=== PATIENT | female | born 1970 | race Caucasian/White ===

== ENCOUNTER 2016-08-09 08:21 | Emergency (ER) | payer OTHER ==
[2016-08-09 08:44] VITALS: BP 137/71
== END 2016-08-09 10:05 | disposition left against medical advice (07) ==
LOC: UCEAST 08:21
DX: R50.9 Fever, unspecified (principal); R05 Cough; M79.1 Myalgia; Z53.21 Procedure and treatment not carried out due to patient leaving prior to being seen by health care provider

== ENCOUNTER 2016-12-22 20:43 | Emergency (ER) | payer SELFPAY ==
[2016-12-22 21:09] VITALS: BP 149/79
--- NOTE | 2016-12-22 21:22 | UC ---
Ihsan Ortega Thomas, scribed for Arlene Pandey MD on 12/22/16 at 2105 . Upper Extremity HPI - HPI Summary HPI Summary: The patient is an 46 y/o F presenting to [facility] [place] c/o R arm pain that began 12 days ago. The pt notes a hard spot to the R forearm that has a throbbing quality. The pain radiates into her shoulder (with a shooting quality), although her shoulder pain only occurs with movement of elbow. The pt was helping a pastient use the toilet when she injured herself in an unclear manner. Shortly after the injury, she reports minor discomfort, for which she iced her arm. Her pain has worsened over the last 12 days, prompting a visit to [facility] [place]. She reports a previous neck injury, for which she takes muscle relaxers, Tylenol, and codeine. She also has recently taken ibuprofen to control her pain as well. She works at the [employer]. She sometimes lifts in her job. The pt is R-handed. She has had previous injuries to her R shoulder. The patient says the pain is throbbing and rates the pain 8/10. She additionally c/o distal swelling on her distal hand and hand numbness. PMHx: neck injury, shoulder injury. PSHx: 4 R shoulder surgeries ([id number]). SHx: no tobacco, no alcohol, no illicit drugs. FHx: none of shoulder problems. Her PCP is Dr. Preciado. Patients medications are reviewed this visit. - History of Current Complaint Chief Complaint: UCUpperExtremity Stated Complaint: ARM INJURY Time Seen by Provider: 12/22/16 20:52 Hx Obtained From: Patient Hx Last Menstrual Period: 12/06/16 Onset/Duration: Lasting Days - 12 days ago, Still Present Pain Intensity: 8 Pain Scale Used: 0-10 Numeric Character: Throbbing Aggravating Factor(s): Movement Alleviating Factor(s): Ice, OTC Meds - tylenol, ibuprofen Associated Signs And Symptoms: Positive: Swelling, Numbness/Tingling Related History: Dominant Hand Right - Allergies/Home Medications Allergies/Adverse Reactions: Allergies Allergy/AdvReac Type Severity Reaction Status Date / Time Propoxyphene Allergy Intermediate Itching Verified 08/09/16 08:44 [From Darvocet-N] Cyclobenzaprine Allergy Mild TIRED, Verified 08/09/16 08:44 [From Flexeril] NAUSEA, "OUT OF IT" Hydrocodone [From Vicodin] Allergy Mild Itching Verified 08/09/16 08:44 Pseudoephedrine Allergy Mild "WHACKS ME Verified 08/09/16 08:44 [From Sudafed] OUT" PMH/Surg Hx/FS Hx/Imm Hx Previously Healthy: No Other Neurological History: Injuries to R shoulder and neck Other History Of: Negative For: Anticoagulant Therapy - Surgical History Surgical History: Yes Surgery Procedure, Year, and Place: RIGHT THUMB, 4 RT SHOULDER SURGERIES 1997- 2000 - Family History Known Family History: Positive: None - Social History Alcohol Use: None Substance Use Type: None Smoking Status (MU): Never Smoked Tobacco - Immunization History Most Recent Influenza Vaccination: 2014 Review of Systems Constitutional: Negative Skin: Negative Eyes: Negative ENT: Negative Respiratory: Negative Cardiovascular: Negative Gastrointestinal: Negative Genitourinary: Negative Motor: Negative Neurovascular: Negative Musculoskeletal: Edema - POS: swelling to distal hand, Other: - POS: R arm pain Neurological: Numbness - hand Psychological: Negative All Other Systems Reviewed And Are Negative: Yes Physical Exam Triage Information Reviewed: Yes Appearance: Well-Appearing, No Pain Distress Vital Signs: Initial Vital Signs Temp 97.8 F 12/22/16 20:56 Pulse 73 12/22/16 20:56 Resp 17 12/22/16 20:56 BP 149/79 12/22/16 20:56 Pulse Ox 96 12/22/16 20:56 Vital Signs Reviewed: Yes Eye Exam: Normal ENT Exam: Normal Neck exam: Normal Neck: Positive: 1 Respiratory Exam: Normal Respiratory: Positive: Chest non-tender, Lungs clear Cardiovascular Exam: Normal Cardiovascular: Positive: RRR, No Murmur, Other: - 2+ radial, 2+ ulnar CBT < 2 sec Musculoskeletal: Positive: Other: - TTP right forearm. Pain increases with direct palpation and movement. + flex/ext wrist, elbow + pronate/supinate Neurological Exam: Normal Neurological: Positive: Other: - + thumb up, a ok, finger spread, finger cross 5 /5 grasp + gross sensation Psychological Exam: Normal Skin Exam: Normal Upper Extremity Course/Dx - Course Course Of Treatment: The pt was noted to have an elevated blood pressure. She was advised to f/u with her PCP. Pt with right forearm pain + point tenderness mid frearm - suspect muscle strain. splint for support. ice. motrin/apap. rest. PCP fu. Pt comfortable and olvin greement with plan. work restriction - Differential Dx/Diagnosis Provider Diagnoses: muscle strain Discharge - Discharge Plan Condition: Stable Disposition: HOME Patient Education Materials: Muscle Strain (ED) Referrals: Chaparro Preciado MD [Primary Care Provider] - Ernie Rutledge MD [Medical Doctor] - Additional Instructions: - wear splint for comfort and support - elevate your arm as much as possible to help with swelling and pain - Okay to take ibuprofen (Motrin, Advil) every 6-8 hours for pain. Take with food. Do NOT take for more than 4-5 days - try to avoid lifting more than 20 pounds for a period of 1 week - Contact your doctor to schedule a follow-up appointment next week. Contact your doctor or the orthopedic (Dr. Rutledge) or return with questions or concerns The documentation as recorded by the Ihsan fonseca Thomas accurately reflects the service I personally performed and the decisions made by me, Arlene Pandey MD.
== END 2016-12-22 21:28 | disposition home or self-care (01) ==
LOC: UCEAST 20:43
DX: S46.911A Strain of unspecified muscle, fascia and tendon at shoulder and upper arm level, right arm, initial encounter (principal); X58.XXXA Exposure to other specified factors, initial encounter; Y93.F9 Activity, other caregiving; Y92.009 Unspecified place in unspecified non-institutional (private) residence as the place of occurrence of the external cause; Y99.0 Civilian activity done for income or pay; Z88.5 Allergy status to narcotic agent; Z88.8 Allergy status to other drugs, medicaments and biological substances
CPT/HCPCS: 99213; G0463

== ENCOUNTER 2017-02-21 08:44 | Emergency (ER) | payer BC ==
[2017-02-21 09:26] VITALS: BP 149/74
[2017-02-21] MEDS ORDERED: Ketorolac INJ* 60 MG/2 ML VIAL IM ONE (09:51)
--- NOTE | 2017-02-21 09:55 | UC ---
Jaylan Ortega Angela, scribed for Arlene Pandey MD on 02/21/17 at 0930 . Upper Extremity HPI - HPI Summary HPI Summary: This pt is a 46 y/o right-handed female accompanied by her mother presenting to [facility] c/o right shoulder pain x2 days, worse last night. Pt RHD, Pt with h/o 4 right shoulder surgeries. Does not see orthopedic for shoulder currently. Pt additionally c/o intermittnet right hand swelling and right finger numbness. She denies neck pain. Pt states difficulty sleeping last night secondary to pain. Pt denies any recent injuries. She work in [employer] for 2 years now, and does some lifting of patients. Pt is currently on Tylenol with codeine and muscle relaxant (Soma), and has recently taken ibuprofen - none today. She takes codeine 3-4 times a day. Today, pt took Tylenol and codeine at 0700 with some relief. These are prescribed by electrostatic painter. She has tried icy hot on her shoulder with mild relief. Pt has had 4 right shoulder surgeries in the past, her last surgery was in 2001. She had 2 rotator cuff tears, bicep tendon tear, and had the same bicep tendon tear again from physical therapy. Pt takes multivitamins. Patients medication reviewed this visit. - History of Current Complaint Chief Complaint: UCUpperExtremity Stated Complaint: SHOULDER PAIN Time Seen by Provider: 02/21/17 09:19 Hx Obtained From: Patient, Family/Supervisor Electronic Testing - mother Hx Last Menstrual Period: jul 31, 2106 ?: No Onset/Duration: Lasting Days Severity Initially: Moderate Severity Currently: Severe Pain Intensity: 8 Location Of Pain: Is Discrete @ - right shoulder Character: Sharp, Aching Aggravating Factor(s): Movement Alleviating Factor(s): Other: - codeine, tylenol Associated Signs And Symptoms: Positive: Swelling - right hand, Numbness/ Tingling - right fingers. Negative: Redness, Bruising, Fever, Weakness Related History: Dominant Hand Right - Allergies/Home Medications Allergies/Adverse Reactions: Allergies Allergy/AdvReac Type Severity Reaction Status Date / Time Propoxyphene Allergy Intermediate Itching Verified 02/21/17 09:19 [From Darvocet-N] Cyclobenzaprine Allergy Mild TIRED, Verified 02/21/17 09:19 [From Flexeril] NAUSEA, "OUT OF IT" Hydrocodone [From Vicodin] Allergy Mild Itching Verified 02/21/17 09:19 Pseudoephedrine Allergy Mild "WHACKS ME Verified 02/21/17 09:19 [From Sudafed] OUT" PMH/Surg Hx/FS Hx/Imm Hx - Additional Past Medical History Additional PMH: PMHx: right shoulder pain Previously Healthy: Yes Other Endocrine History: DENIES: diabetes Other Cardiovascular History: Denies: HTN Other Respiratory History: Denies: COPD, asthma Other History Of: Negative For: Anticoagulant Therapy - Surgical History Surgical History: Yes Surgery Procedure, Year, and Place: RIGHT THUMB, 4 RT SHOULDER SURGERIES 1997- 2000 - Family History Known Family History: Negative: Hypertension, Diabetes - Social History Occupation: Employed Full-time Alcohol Use: None Substance Use Type: None Smoking Status (MU): Never Smoked Tobacco - Immunization History Most Recent Influenza Vaccination: 2014 Review of Systems Constitutional: Negative Skin: Negative Eyes: Negative ENT: Negative Respiratory: Negative Cardiovascular: Negative Gastrointestinal: Negative Genitourinary: Negative Motor: Decreased ROM - right shoulder Neurovascular: Negative Musculoskeletal: Other: - right shoulder pain, right hand swelling Neurological: Numbness - in right fingers Psychological: Negative All Other Systems Reviewed And Are Negative: Yes Physical Exam Triage Information Reviewed: Yes Appearance: Well-Appearing, No Pain Distress Vital Signs: Initial Vital Signs Temp 97.3 F 02/21/17 09:23 Pulse 68 02/21/17 09:23 Resp 16 02/21/17 09:23 BP 149/74 02/21/17 09:23 Pulse Ox 99 02/21/17 09:23 Vital Signs Reviewed: Yes Eyes: Positive: Conjunctiva Clear ENT: Positive: Hearing grossly normal Neck exam: Normal Neck: Positive: Supple, Nontender Respiratory: Positive: No respiratory distress, No accessory muscle use Cardiovascular: Positive: Other: - 2+ radial, ulnar Musculoskeletal: Positive: Other: - no pain c/t/l/s Full AROM c spine 5/5 grasp + flex/ext wrist, elbow + pronate/supinate + TTP anterior rim shoulder Pain with extension, abduction right shoulder > 15 degrees active PROM to 90 degree Neurological Exam: Normal Neurological: Positive: Other: - + thumb up, a ok, finger spread, finger crossed + gross sensation throughout Psychological Exam: Normal Skin Exam: Normal Diagnostics - Radiology Right Shoulder XR Xray Interpretation: Positive (See Comments) - IMPRESSION: 1. Post surgical changes. 2. Findings suggestive of calcific tendinitis. 3. Probably old hill- sachs fracture. ED physician has reviewed this radiology report and agrees. Radiology Interpretation Completed By: Radiologist Re-Evaluation - Re-Evaluation First Eval Comment: reviewed xray with pt. demonstrated shoulder and elbow excercises outside sling. f/u Dr Gillette. work note - pt states no light duty. Pt comfortable and in agreement with plan Upper Extremity Course/Dx - Course Course Of Treatment: Blood pressure noted and patient informed to follow up with PCP. Pt with pain right anterior shoulder - no trauma- pain increases with movement. Will check imaging. sling. ice. Toradol. Pt has narcotics Rx at home from pain management - no additional narcotics at this visit. Istop checked and consistent - Differential Dx/Diagnosis Provider Diagnoses: right shoulder calcfied tendonitis Discharge - Discharge Plan Condition: Stable Disposition: HOME Discharge Disposition Comment: right shoulder calcified tendonitis Patient Education Materials: Calcific Tendinitis (ED), Shoulder Pain (ED) Forms: *Work Release Referrals: Chaparro Preciado MD [Primary Care Provider] - 5 Days Rosalind Gillette MD [Medical Doctor] - Additional Instructions: - It is recommended you take ibuprofen every 6-8 hours - take with food. Do NOT take for more than 4-5 days - Okay to take pain medication as recommeded by your pain specialist - apply heat or cold packs to your shoulder for discomfort - wear sling - try to relax your arm in your sling and allow it to hold the weight of your arm. It is very important that your arm out of your sling 2-3 times a day, make small circles with your shoulder and slowly bend/straighten your arm - contact the orthopedic provider office to schedule a follow-up appointment The documentation as recorded by the Jaylan fonseca Angela accurately reflects the service I personally performed and the decisions made by , Arlene Pandey MD.
--- NOTE | 2017-02-21 09:57 | RAD ---
INDICATION: Right shoulder pain status post surgery. COMPARISON: Comparison is made with a prior x-ray study of the right shoulder June 17, 2007. TECHNIQUE: 4 views of the right shoulder were obtained. FINDINGS: The bones are in normal alignment. No acute fracture is seen. There is suggestion of an old Hill-Sachs type fracture. There is a calcific density adjacent to the superior lateral aspect of the humeral head suggestive of calcific tendinitis. Postsurgical changes are noted. There are surgical struts within the glenoid process of the scapula. IMPRESSION: 1. POST SURGICAL CHANGES. 2. FINDINGS SUGGESTIVE OF CALCIFIC TENDINITIS. 3. PROBABLE OLD HILL-SACHS FRACTURE.
== END 2017-02-21 10:25 | disposition home or self-care (01) ==
LOC: UCEAST 08:44
DX: M75.31 Calcific tendinitis of right shoulder (principal); Z88.5 Allergy status to narcotic agent; Z88.8 Allergy status to other drugs, medicaments and biological substances
CPT/HCPCS: 96372; 99212; G0463; J1885

== ENCOUNTER 2017-08-14 11:50 | Emergency (ER) | payer SELFPAY ==
[2017-08-14 12:06] VITALS: BP 157/93
--- NOTE | 2017-08-14 12:33 | UC ---
Knee Pain HPI - HPI Summary HPI Summary: 47 y/o female presents to the urgent care c/o RT knee pain since 2017. Pt reports pain was mild and then swelling developed yesterday. Pain is 8/ 10 w/ movement , specially flexing the knee. Pt doesn't recall any injury. However she states she is overweight and she has noticed this is affecting her knees lately. Pt has Hx of chronic shoulder injuries and she is in pain medication. She took a Bethany this morning and it decrease her pain. Pt Fredrick redness, warm knee, numbness or tingling sensation, fever, SOB, chest pain, abdominal pain, N/V/D, Hx of RA, or gout. - History of Current Complaint Chief Complaint: UCLowerExtremity Stated Complaint: R KNEE PAIN Time Seen by Provider: 08/14/17 12:18 Hx Obtained From: Patient Hx Last Menstrual Period: jul 31, 2106 ?: No Onset/Duration: Gradual Onset, Lasting Days - 4 days, Still Present, Worse Since - yesterday Severity Initially: Mild Severity Currently: Moderate Pain Intensity: 8 Pain Scale Used: 0-10 Numeric Character: Dull - and pressure like Aggravating Factor(s): Movement - flexing knee Alleviating Factor(s): Rest, Cold, OTC Meds Associated Signs And Symptoms: Positive: Swelling. Negative: Redness, Bruising , Fever, Numbness, Tingling - Risk Factors Septic Arthritis Risk Factor: Negative Gout Risk Factor: Negative - Allergies/Home Medications Allergies/Adverse Reactions: Allergies Allergy/AdvReac Type Severity Reaction Status Date / Time acetaminophen Allergy Itching Verified 08/14/17 12:07 [From Darvocet-N] cyclobenzaprine Allergy Nausea Verified 08/14/17 12:07 [From Flexeril] phenylephrine Allergy See Comment Verified 08/14/17 12:07 [From Sudafed PE] propoxyphene Allergy Itching Verified 08/14/17 12:07 [From Darvocet-N] Home Medications: Home Medications Cyanocobalamin TAB* [Vitamin B12 TAB*] 500 mcg PO DAILY 08/14/17 [History Confirmed 08/14/17] PMH/Surg Hx/FS Hx/Imm Hx - Additional Past Medical History Additional PMH: Chronic RT shoulder injuries Previously Healthy: Yes Other History Of: Negative For: Anticoagulant Therapy - Surgical History Surgical History: Yes Surgery Procedure, Year, and Place: RIGHT THUMB, 4 RT SHOULDER SURGERIES 1997- 2000 - Family History Known Family History: Positive: None - Pt denies FMHX Negative: Hypertension, Diabetes - Social History Occupation: Employed Full-time Lives: With Family Alcohol Use: None Substance Use Type: None Smoking Status (MU): Never Smoked Tobacco - Immunization History Most Recent Influenza Vaccination: 2014 Review of Systems Constitutional: Negative Skin: Negative Eyes: Negative ENT: Negative Respiratory: Negative Cardiovascular: Negative Gastrointestinal: Negative Genitourinary: Negative Motor: Negative Neurovascular: Negative Musculoskeletal: Decreased ROM - RT knee, Other: - RT acute knee pain Neurological: Negative Psychological: Negative Is Patient Immunocompromised?: No All Other Systems Reviewed And Are Negative: Yes Physical Exam - Summary Physical Exam Summary: Vital Signs Reviewed: Yes General: well developed, well nourished female sitting in the examining table w/ o any apparent distress Eyes: Positive: Conjunctiva Clear - PERRLA, EOMI, fundi grossly normal ENT: Positive: Normal ENT inspection, Hearing grossly normal, Pharynx normal, TMs normal Neck: Positive: Supple, Nontender, No Lymphadenopathy Respiratory: Positive: Chest nontender, Lungs clear, Normal breath sounds, No respiratory distress Cardiovascular: Positive: RRR, No Murmur, Pulses Normal, Brisk Capillary Refill Abdomen Description: Positive: Nontender, No Organomegaly, Soft. Negative: CVA Tenderness (R), CVA Tenderness (L) Bowel Sounds: Positive: Present Musculoskeletal: Positive: Strength Intact, No Edema, RT Knee: Pt is able to bear weight and ambulate with mild limping. No surface trauma, mild soft tissue swelling over the suprapatellar, no obvious effusion. No overlying erythema or warmth. The R knee is without obvious asymmetry or deformity when compared with the L knee. RT knee is 18'' abd LF knee is 17 1/2'', Decreased ROM of RT knee due to pain. No tenderness to palpation of the patella, no effusion or ballottement. No tenderness over the infrapatellar tendon. Point tenderness over the medial joint line, and suprapatellar, No tenderness over the medial or lateral tibial plateaus. No tenderness over the proximal fibular head, No tenderness, fullness or mass of the popliteal fossa. Mild point tenderness over quadriceps.. No laxity of the ACL. PCL, MCL, or LCL. no collateral ligament laxity to valgus or varus stress. Negative Carrie/Drawer sign. Positive Lidya. Distal motor and neurovascular status intact. Neurological Exam: Normal Psychological Exam: Normal Skin Exam: Normal Triage Information Reviewed: Yes Vital Signs: Initial Vital Signs Temp 97.5 F 08/14/17 12:04 Pulse 78 08/14/17 12:04 Resp 18 08/14/17 12:04 BP 157/93 08/14/17 12:04 Pulse Ox 98 08/14/17 12:04 Knee Pain Course/Dx - Course Course Of Treatment: 47 y/o female presents to the urgent care c/o RT knee pain since 08/11/2017. Pt reports pain was mild and then swelling developed yesterday. Pain is 8/10 w/ movement , specially flexing the knee. Pt doesn't recall any injury. However she states she is overweight and she has noticed this is affecting her knees lately. Pt has Hx of chronic shoulder injuries and she is in pain medication. She took a Bethany this morning and it decrease her pain. Pt Denies redness, warm knee, numbness or tingling sensation , fever, SOB, chest pain, abdominal pain, N/V/D, Hx of RA, or gout. Hx obtained. RT knee X-ray ordered. Impression: Mild osteoarthritis and small suprqapatellar joint effusion and No acute osseous injury observed as per radiologist. Pt's knee immobilized w/ knee immobilizer and advised RICE. Avoid strenuous exercise or standing for long period of time. Advised to f/u w/ Orthopedic DR Gillette in 2-3 days for further evaluation and treatment.. Also advised to go to the ER if she developes fever, redness and severe swelling of her RT knee for further management. Pt's BP is elevated today advised to decrease salt in diet, monitor BP and f/u with PCP for further management. PT understood and agreed with D/C instructions. - Differential Dx/Diagnosis Differential Diagnosis/HQI/PQRI: Abrasion, Bursitis, Cellulitis, Contusion, Fracture (Closed), Gout, Phlebitis Provider Diagnoses: 1- Acute RT knee pain. 2- RT knee ostearthritis. 3- Elevated BP w/o Hx of HTN Discharge - Discharge Plan Condition: Stable Disposition: HOME Prescriptions: Naproxen Sodium [Naproxen Sodium 500 MG TAB] 500 mg PO Q8HR PRN #30 tab PRN Reason: Pain Patient Education Materials: Osteoarthritis (ED), Knee Pain (ED), Low-Sodium Diet (ED) Referrals: Chaparro Preciado MD [Primary Care Provider] - 3 Days Rosalind Gillette MD [Medical Doctor] - 2 Days Additional Instructions: 1-Please take medications as directed to alleviate pain and swelling. 2-Please apply ice, keep your knee immobilized with the knee immobilizer 3- If you develope fever, your knee becomes very swollen and red, please go immediately to the ER for further treatment 4- Please f/u with Orthopedic Dr Gillette or your PCP in 2-3 days if not improvement of symptoms for further evaluation and treatment. 5-Your BP is elevated today. please decrease salt in your diet, monitor BP and if it continues to be elevated please f/u with your PCP for further management
--- NOTE | 2017-08-14 13:05 | RAD ---
HISTORY: Acute right knee pain COMPARISONS: None VIEWS: 4, Frontal weightbearing views of both knees, lateral, oblique, and axial views of the right knee FINDINGS: BONE DENSITY: Normal. BONES: There is no displaced fracture. JOINTS: There is mild medial compartment osteoarthritis. There is a small suprapatellar joint effusion. There is a lipohemarthrosis. ALIGNMENT: There is no dislocation. SOFT TISSUES: Unremarkable. OTHER FINDINGS: None. IMPRESSION: MILD OSTEOARTHRITIS WITH A SMALL JOINT EFFUSION. NO ACUTE OSSEOUS INJURY. IF SYMPTOMS PERSIST, RECOMMEND REPEAT IMAGING.
== END 2017-08-14 13:40 | disposition home or self-care (01) ==
LOC: UCEAST 11:50
DX: M25.561 Pain in right knee (principal); M17.11 Unilateral primary osteoarthritis, right knee; R03.0 Elevated blood-pressure reading, without diagnosis of hypertension; Z88.6 Allergy status to analgesic agent; Z88.8 Allergy status to other drugs, medicaments and biological substances
CPT/HCPCS: 99213; G0463

== ENCOUNTER → 2018-01-13 08:02 | Emergency (ER) | payer SELFPAY ==
[~2018-01-13 08:02] MED LIST: Naloxone* 0.4 MG/ML 1 ML VIAL IV PUSH ONE
--- NOTE | 2018-01-13 08:27 | ED ---
Altered Mental Status - HPI Summary HPI Summary: This is scribe Gavin Garcia documenting for attending Dr. Darin Garcia This patient is a 47 year old F presenting to [facility] with a chief complaint of lethargy. Pt normally works nights, and endorsed that she has not slept in past 3 days. Pt endorses right elbow pain, and denies CP and SOB. Pt was unable to provide full birthday. Level 5 caveat: HPI unobtainable due to pts AMS. I, Dr. Webster personally performed the services described in this documentation as scribed in my presence and it is both accurate and complete. - History Of Current Complaint Chief Complaint: EDAltMentalStatus Stated Complaint: LETHARGIC/ALTERED MENTAL STATUS Time Seen by Provider: 01/13/18 08:10 Hx Obtained From: Patient, EMS Hx From Patient Unobtainable Due To: Altered Mental Status Hx Last Menstrual Period: jul 31, 2106 Onset/Duration: Unknown, Still Present Timing: Constant Severity Initially: Moderate Severity Currently: Moderate Character: Lethargy Aggravating Factor(s): Unknown Alleviating Factor(s): Unknown Associated Signs And Symptoms: Positive: Weakness - Allergies/Home Medications Allergies/Adverse Reactions: Allergies Allergy/AdvReac Type Severity Reaction Status Date / Time acetaminophen Allergy Itching Verified 08/14/17 12:07 [From Darvocet-N] cyclobenzaprine Allergy Nausea Verified 08/14/17 12:07 [From Flexeril] phenylephrine Allergy See Comment Verified 08/14/17 12:07 [From Sudafed PE] propoxyphene Allergy Itching Verified 08/14/17 12:07 [From Darvocet-N] Home Medications: Home Medications Acetaminop/Codeine 30 MG TAB* [Tylenol/Codeine 30 MG TAB*] 1 tab PO Q4HR PRN 03/23 [History Confirmed 01/13/18] Carisoprodol TAB* [Soma TAB*] 350 mg PO TID PRN 01/13/18 [History Confirmed 03/23] PMH/Surg Hx/FS Hx/Imm Hx Endocrine/Hematology History: Denies: Hx Anticoagulant Therapy, Hx Diabetes, Hx Sickle Cell Disease, Hx Thyroid Disease Cardiovascular History: Denies: Hx Hypertension - no longer needing meds, Hx Pacemaker/ICD Respiratory History: Denies: Hx Asthma, Hx Chronic Obstructive Pulmonary Disease (COPD) GI History: Denies: Hx Ulcer History: Denies: Hx Renal Disease Sensory History: Denies: Hx Legally Blind, Hx Deafness, Hx Hearing Aid Opthamlomology History: Denies: Hx Legally Blind EENT History: Denies: Hx Deafness Neurological History: Reports: Hx Seizures - no longer on medication for, Other Neuro Impairments/Disorders - hx of siezures, 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 Denies: Hx Dementia Psychiatric History: Reports: Hx Substance Abuse Denies: Hx Panic Disorder - Cancer History Hx Chemotherapy: No Hx Radiation Therapy: No - Surgical History Surgery Procedure, Year, and Place: RIGHT THUMB, 4 RT SHOULDER SURGERIES 1997- 2000 - Immunization History Date of Tetanus Vaccine: UNKNOWN Infectious Disease History: Unable to Obtain/Confirm Infectious Disease History: Denies: Hx Clostridium Difficile, Hx Hepatitis, Hx Human Immunodeficiency Virus (HIV), Hx of Known/Suspected MRSA, Hx Shingles, Hx Tuberculosis, Hx Known/ Suspected VRE, Hx Known/Suspected VRSA, History Other Infectious Disease, Traveled Outside the [place] in Last 30 Days - Family History Known Family History: Negative: Hypertension, Diabetes - Social History Occupation: Employed Full-time Alcohol Use: None Substance Use Type: Reports: Prescribed Substance Use Comment - Amount & Last Used: soma, tylenol with codeine Smoking Status (MU): Never Smoked Tobacco Review of Systems - ROS Summary Review of Systems Summary: Level 5 caveat: Full ROS unobtainable due to pt's AMS. Positive: Fatigue, Other - Lethargy. Negative: Fever Negative: Chest Pain Negative: Shortness Of Breath Positive: no symptoms reported Positive: Arthralgia - right elbow Positive: Weakness All Other Systems Reviewed And Are Negative: No Physical Exam - Summary Physical Exam Summary: VITAL SIGNS: Reviewed. GENERAL: Patient is an obese female who is lying comfortable in the stretcher. Patient is not in any acute respiratory distress. Pt is very lethargic, unable to obtain history due to AMS, unable to follow commands. HEAD AND FACE: No signs of trauma. No ecchymosis, hematomas or skull depressions. No sinus tenderness. EYES: Pinpoint pupils, EOMI x 2, No injected conjunctiva, no nystagmus. EARS: Hearing grossly intact. Ear canals and tympanic membranes are within normal limits. MOUTH: Oropharynx within normal limits. NECK: Supple, trachea is midline, no adenopathy, no JVD, no carotid bruit, no c- spine tenderness, neck with full ROM. CHEST: Symmetric, no tenderness at palpation LUNGS: Clear to auscultation bilaterally. No wheezing or crackles. CVS: Regular rate and rhythm, S1 and S2 present, no murmurs or gallops appreciated. ABDOMEN: Soft, non-tender. No signs of distention. No rebound, no guarding, and no masses palpated. Bowel sounds are normal. EXTREMITIES: FROM in all major joints, no edema, no cyanosis or clubbing. NEURO: Very lethargic, unable to follow commands. No acute neurological deficits. SKIN: Dry and warm Triage Information Reviewed: Yes Vital Signs On Initial Exam: Initial Vitals Temp Pulse Resp BP Pulse Ox 98.6 F 94 15 127/84 96 01/13/18 08:13 01/13/18 08:13 01/13/18 08:13 01/13/18 08:13 01/13/18 08:13 Vital Signs Reviewed: Yes Completion Of Physical Exam Limited Due To: Altered Mental Status, Level 5 Diagnostics - Vital Signs Vital Signs Temp Pulse Resp BP Pulse Ox 01/13/18 08:13 98.6 F 94 15 127/84 96 - Laboratory Result Diagrams: 01/13/18 08:22 01/13/18 08:22 Lab Statement: Any lab studies that have been ordered have been reviewed, and results considered in the medical decision making process. - EKG 0822 Cardiac Rate: NL - 84 EKG Rhythm: Sinus Rhythm ST Segment: Normal Ectopy: None EKG Interpretation: No STEMI Re-Evaluation - Re-Evaluation First Eval Re-Evaluation Time: 11:44 Change: Improved Comment: Family wanted to speak with Dr. Wesbter, discussed wanting d/c for pt. Now pt is A&O X3. Altered Mental Statu Course/Dx - Course Assessment/Plan: This patient is a 47-year-old female who presents to the emergency department via ambulance with a chief complaint of having lethargy after the patient hasnt been able to sleep for the last 3 days secondary to her job. In the course the patient shows pinpoint pupils therefore the patient was given Narcan. After she was given his medication the patient woke up and she reports that she hasnt been sleeping well because of her multiple jobs in the last 3 days and also a she took Nucynta and Tylenol No. 3 with codeine which is a prescription for this patient. Test results without any significant abnormality except for what was a count of 11.2, creatinine 1.23, glucose 112. We tried to get UA with a catheter, however the patient produced about 1 cc of urine. Since the patient is really dry she was given approximately 2 L of IV fluids and now the patient has urinated approximately 800 cc of urine. Right now the patient is alert and oriented 3. The patient is ambulating. The patient will be discharged home with her daughter and her mother. At this time the patient would not benefit of a head CT since the patients neurological exam is normal. The patient does have any neurological focal deficits. I discussed all the findings and test results with the patient. Patient was instructed to return to the emergency room immediately if any of the symptoms return or worsens. Plan of care was discussed with the patient and understands and agrees. All questions were answered at patient satisfaction. There were no further complaints or concerns. Lung exam before discharge: CTA B/L. Good air exchange. No wheezing or crackles heard. CVS: S1 and S2 present. No murmurs appreciated. Patient is alert and oriented x 3. Patient is hemodynamically stable. Patient will be discharged home with follow up PCP in the next 2-3 days - Diagnoses Provider Diagnoses: Fatigue, Intoxication with opioids Discharge - Sign-Out/Discharge Documenting (check all that apply): Patient Departure - discharge - Discharge Plan Condition: Stable Disposition: HOME Patient Education Materials: Fatigue (ED), Safe Use of Opioids (ED) Referrals: Chaparro Preciado MD [Primary Care Provider] - 3 Days Additional Instructions: Return to the emergency department for any new or worsening symptoms. Attestations User Type: Provider - I, Dr. Webster personally performed the services described in this documentation as scribed in my presence and it is both accurate and complete.
[2018-01-13 08:30] LABS: ABS Basophils 0.1 10^3/ul (0-0.2); ABS Eosinophils 0.2 10^3/ul (0-0.6); ABS Lymphocytes 3.8 10^3/ul (1.0-4.8); ABS Monocytes 0.8 10^3/ul (0-0.8); ABS Neutrophils 6.3 10^3/ul (1.5-7.7); ABS Nucleated RBC 0 10^3/ul; Eosinophil % 1.5 % (0-6); Hematocrit 35 % (35-47); Hemoglobin 11.8 g/dl (12.0-16.0); Lymphocyte % 33.8 % (25-47); Mean Corpuscular HGB Conc 33 g/dl (31-36); Mean Corpuscular Hemoglobin 27 pg (27-31); Mean Corpuscular Volume 81 fL (80-97); Mean Platelet Volume 9.2 um3 (7.4-10.4); Nucleated Red Blood Cells % 0.1; Platelet Count 274 10^3/ul (150-450); Red Blood Count 4.36 10^6/ul (4.00-5.40); Red Cell Distribution Width 14 % (10.5-15); White Blood Count 11.2 10^3/ul (3.5-10.8)
[2018-01-13] MEDS: NS 0.9% 1000 ML* 2,000 ML IV ONE ×2 (08:32→09:22)
[2018-01-13 08:36] LABS: INR 0.94 (0.77-1.02)
[2018-01-13 08:47] LABS: EGFR Non-African American 46.4 (>60)
[2018-01-13 11:16] LABS: Urine Appearance Clear; Urine Blood Negative (Negative); Urine Color Straw; Urine Ketones Negative (Negative); Urine Protein Negative (Negative); Urine Specific Gravity 1.013 (1.010-1.030); Urine Urobilinogen Negative (Negative)
[2018-01-13 12:55] VITALS: BP 98/67
== END | disposition home or self-care (01) ==
LOC: ED 08:02
DX: R53.83 Other fatigue (principal); T40.2X5A Adverse effect of other opioids, initial encounter; Y92.9 Unspecified place or not applicable; Z88.8 Allergy status to other drugs, medicaments and biological substances
CPT/HCPCS: 36415; 80053; 80307; 80320; 80329; 81003; 82140; 82550; 83605; 83735; 84443; 84484; 85025; 85610; 93005; 96361; 96374; 96376; 99285; G0480; J2310

== ENCOUNTER → 2018-06-16 | Emergency (ER) | payer BC ==
[~2018-06-16] MED LIST changes: +Acetaminophen TAB* 325 MG PO ONE; +NS 0.9% 1000 ML** 1,000 ML IV ONE; -Naloxone* 0.4 MG/ML 1 ML VIAL IV PUSH ONE; +Ondansetron INJ* 2 MG/ML VIAL IV ONE
--- NOTE | 2018-06-16 06:54 | ED ---
Influenza-Like Illness - HPI Summary HPI Summary: Patient presents with flu-like symptoms over past 3-4 days. She started with nasal congestion, ear congestion and a mild dry cough. Still has cough and has progressed into fever (she reports 104 Fahrenheit temporally at home at highest) , nausea with vomiting and overall malaise. She took 800 mg of ibuprofen at 4 AM this morning. Also reports she's been around 2 sick grandbabies. Works at [employer] (possible exposure to illness there as well). She is otherwise healthy and only takes medication for pain issues. Denies smoking or secondhand smoke exposure. - History of Current Complaint Chief Complaint: EDUpperRespComplaint Time Seen by Provider: 06/16/18 06:38 Hx Obtained From: Patient - Allergy/Home Medications Allergies/Adverse Reactions: Allergies Allergy/AdvReac Type Severity Reaction Status Date / Time acetaminophen Allergy Itching Verified 06/16/18 07:14 [From Darvocet-N] cyclobenzaprine Allergy Nausea Verified 06/16/18 07:14 [From Flexeril] phenylephrine Allergy See Comment Verified 06/16/18 07:14 [From Sudafed PE] propoxyphene Allergy Itching Verified 06/16/18 07:14 [From Darvocet-N] PMH/Surg Hx/FS Hx/Imm Hx Previously Healthy: Yes Endocrine/Hematology History: Denies: Hx Anticoagulant Therapy, Hx Diabetes, Hx Sickle Cell Disease, Hx Thyroid Disease, Autoimmune Disease Cardiovascular History: Denies: Hx Hypertension - no longer needing meds, Hx Pacemaker/ICD Respiratory History: Denies: Hx Asthma, Hx Chronic Obstructive Pulmonary Disease (COPD), Hx Pneumonia GI History: Denies: Hx Ulcer History: Denies: Hx Renal Disease Sensory History: Denies: Hx Legally Blind, Hx Deafness, Hx Hearing Aid Opthamlomology History: Denies: Hx Legally Blind Neurological History: Reports: Hx Seizures - no longer on medication for, Other Neuro Impairments/Disorders - hx of siezures, 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 Denies: Hx Dementia Psychiatric History: Reports: Hx Substance Abuse Denies: Hx Panic Disorder - Cancer History Hx Chemotherapy: No Hx Radiation Therapy: No - Surgical History Surgery Procedure, Year, and Place: RIGHT THUMB, 4 RT SHOULDER SURGERIES 1997- 2000 - Immunization History Date of Tetanus Vaccine: UNKNOWN Infectious Disease History: No Infectious Disease History: Denies: Hx Clostridium Difficile, Hx Hepatitis, Hx Human Immunodeficiency Virus (HIV), Hx of Known/Suspected MRSA, Hx Shingles, Hx Tuberculosis, Hx Known/ Suspected VRE, Hx Known/Suspected VRSA, History Other Infectious Disease, Traveled Outside the [place] in Last 30 Days - Family History Known Family History: Negative: Hypertension, Diabetes - Social History Occupation: Employed Full-time - [employer] Lives: With Family Alcohol Use: None Hx Substance Use: Yes Substance Use Type: Reports: Prescribed Substance Use Comment - Amount & Last Used: soma, tylenol with codeine Hx Tobacco Use: No Smoking Status (MU): Never Smoked Tobacco Review of Systems Positive: Fever, Fatigue Eyes: Negative Positive: Ear Ache, Nasal Discharge Cardiovascular: Negative Positive: Cough. Negative: Shortness Of Breath Positive: Vomiting, Nausea. Negative: Abdominal Pain Genitourinary: Negative Musculoskeletal: Other - achiness Skin: Negative Psychological: Normal All Other Systems Reviewed And Are Negative: Yes Physical Exam Triage Information Reviewed: Yes Vital Signs On Initial Exam: Initial Vitals Temp Pulse Resp BP Pulse Ox 101.7 F 117 20 134/100 95 06/16/18 06:13 06/16/18 06:13 06/16/18 06:13 06/16/18 06:13 06/16/18 06:13 Vital Signs Reviewed: Yes Appearance: Positive: No Pain Distress, Ill-Appearing - appears fatigued, eyes glassy, Obese Skin: Positive: Warm, Skin Color Reflects Adequate Perfusion, Dry - no rash Head/Face: Positive: Normal Head/Face Inspection Eyes: Positive: Normal, EOMI, ALEAH, Conjunctiva Clear. Negative: Conjunctiva Inflammed, Discharge ENT: Positive: Pharyngeal erythema - mild erythema, oral mucosa dry, Nasal congestion, TMs normal, Uvula midline. Negative: Tonsillar swelling, Tonsillar exudate, Trismus, Muffled voice, Sinus tenderness Neck: Positive: Supple, Nontender, No Lymphadenopathy Respiratory/Lung Sounds: Positive: Breath Sounds Present, Rhonchi. Negative: Rales, Wheezes Cardiovascular: Positive: Tachycardia, S1, S2. Negative: Murmur, Rub Abdomen Description: Positive: Nontender, No Organomegaly, Soft Bowel Sounds: Positive: Present Musculoskeletal: Positive: Normal, Strength/ROM Intact Neurological: Positive: Normal, Sensory/Motor Intact, Alert, Oriented to Person Place, Time, CN Intact II-III Psychiatric: Positive: Normal Diagnostics - Vital Signs Vital Signs Temp Pulse Resp BP Pulse Ox 06/16/18 06:22 110 153/104 93 06/16/18 06:21 111 95 06/16/18 06:13 101.7 F 117 20 134/100 95 - Laboratory Lab Statement: Any lab studies that have been ordered have been reviewed, and results considered in the medical decision making process. Re-Evaluation - Re-Evaluation First Eval Change: Improved - HR, BP and temp improved w/ ibuprofen, zofran IVF -pt tolerating PO well Flu Symptom Course/Dx - Course Course Of Treatment: Flu neg. CXR: no acute findings. Viral syndrome - supportive care and f/u w/ PCP as needed. Reviewed danger s/sx of when to return to ED - Diagnoses Provider Diagnoses: Viral syndrome Discharge - Sign-Out/Discharge Documenting (check all that apply): Patient Departure - Discharge Plan Condition: Stable Disposition: HOME Prescriptions: Ondansetron ODT TAB* [Zofran 4 MG Odt TAB*] 8 mg PO Q8H PRN #9 tab.odt PRN Reason: Nausea Patient Education Materials: Viral Syndrome (ED) Forms: *Work Release Referrals: Chaparro Preciado MD [Primary Care Provider] - Additional Instructions: Take nausea medicine as needed as it is important that you stay hydrated Try the following to support you through your illness: Nasal wash (netti pot or saline spray) & salt water throat gargles 2 x day Drink you body weight in ounces of water every day Sleep 8+ hours per night Avoid Dairy and sugar Hot herbal/decaf tea with lemon & honey Chicken broth (preferably organic, free range chicken) Humidifier in house, but especially near bed at night Keep home temperature at 68F or less to reduce dryness Use cough drops/throat lozenges Try a facial steam with or without eucalyptus essential oil or Ollie's Vapor rub for congestion Avoid smoke, candles, perfumes, colognes, scented soaps/detergents , air fresheners and cleaning chemicals as these can cause airway irritation and trigger coughing Start Vitamin D3 5000iu and Vitamin C 1000mg every day during illness - Billing Disposition and Condition Condition: STABLE Disposition: Home
[2018-06-16 07:13] LABS: Influenza A Molecular NEGATIVE (Negative); Influenza B Molecular NEGATIVE (Negative)
[2018-06-16 09:59] VITALS: BP 101/71
== END | disposition home or self-care (01) ==
LOC: ED 06:11
DX: B34.9 Viral infection, unspecified (principal); R11.2 Nausea with vomiting, unspecified; R09.81 Nasal congestion; R50.9 Fever, unspecified; R53.83 Other fatigue; R05 Cough
CPT/HCPCS: 71046; 96374; 96375; 99283; A9270-GY; J2405

== ENCOUNTER 2018-07-28 07:45 | Emergency (ER) | payer BC, OTHER ==
[2018-07-28 08:06] VITALS: BP 150/92
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
== END 2018-07-28 09:11 | disposition home or self-care (01) ==
LOC: UCEAST 07:45
DX: S43.401A Unspecified sprain of right shoulder joint, initial encounter (principal); X50.9XXA Other and unspecified overexertion or strenuous movements or postures, initial encounter; Y92.9 Unspecified place or not applicable; Y99.9 Unspecified external cause status; I10 Essential (primary) hypertension; Z88.6 Allergy status to analgesic agent; Z88.8 Allergy status to other drugs, medicaments and biological substances
CPT/HCPCS: 99212; G0463

== ENCOUNTER 2018-11-12 18:33 | Emergency (ER) | payer OTHER ==
[2018-11-12 18:43] VITALS: BP 134/85
--- OUTSIDE RECORDS SUMMARY | 2018-11-12 18:52 | XMS REPORT | Continuity of Care Document ---
:1970 External Reference #:[id number] Author Name Ashley Guillaume Care Team Providers Name Role Phone Jane Canales M.D. Primary Care Physician Unavailable Payers Date Identification Numbers Payment Provider Subscriber Effective: 2009 Policy Number: [id number] [employer] Margie Renee Expires: 2017 PayID: [id number] [address] [address] [place] [address] Onset: 2018 Policy Number: [id number] [facility] Margie Renee Group Number: [id number] [address] [address] Group Name: [phone] [place] [address] [employer]ID: [id number] Policy Number: [id number] [employer] Margie Renee PayID: [id number] [address] [address] [place] [address] Problems Active Problems Provider Date Depressive disorder Chaparro Preciado M.D.,FACP Onset: 10/23/2014 Hyperlipidemia Chaparro Preciado M.D.,FACP Onset: 10/23/2014 Impaired fasting glycaemia Chaparro Preciado M.D.,FACP Onset: 10/31/2014 Morbid obesity Chaparro Preciado M.D.,FACP Onset: 10/23/2014 Body mass index 40+ - severely obese Chaparro Preciado M.D.,FACP Onset: Radiculopathy, cervical region Chase Cuevas MD Onset: 10/10/2018 Strain of muscle(s) and tendon(s) of Chase Ceuvas MD Onset: 10/10/2018 the rotator cuff of right shoulder, subsequent encounter Family History Date Family Member(s) Observation Comments Father Unknown Mother 68 as of 08/20/2014 Mother No Current Problems Siblings None Social History Type Date Description Comments Sex Unknown Marital Status Single Lives With partner Occupation Currently Working at [employer] Tobacco Use Start: Unknown Never Smoked Cigarettes ETOH Use 06/21/2018 Denies alcohol use Recreational Drug Use Denies Drug Use Tobacco Use Start: Unknown Patient has never smoked Smoking Status Reviewed: 10/31/18 Patient has never smoked Exercise Type/Frequency Exercises sporadically Currently Active Patient is currently not sexually active Allergies, Adverse Reactions, Alerts Active Allergies Reaction Severity Comments Date Vicodin HIVES 05/15/2009 Darvocet HIVES 05/15/2009 Sudafed DIFFICULTY BREATHING 05/15/2009 Medications Active Medications SIG Qnty Indications Ordering Provider Date Trazodone HCL 1/2-1 tablet at 30tabs Jane Canales MD 06/21/2018 50mg bedtime as needed Tablets Ibuprofen four times a day 20tabs Chaparro Jara 10/31/2014 200mg Tablets as needed Radha Preciado,FACSteve Soma 1 po tid; Rx'd by 60tabs M54.5 Marko Ugarte, 06/22/[address] Mikey Garcia Tylenol/Codeine #4 tid prn 90tabs 719.41 Other Ordering 06/22/2010 Provider 300-60mg Tablets History Medications Valium take 1 -2 tabs by 2tabs Chase Manning 10/17/2018 - 5mg Tablets mouth as needed MD Faith 10/30/2018 for anxiety and restlessness prior to mri scan Methylprednisolone medrol dosepak 21units M54.12 Chase Manning 08/01/2018 - 4mg TBPK take as instructed MD Faith 10/30/2018 Doxycycline Hyclate 1 by mouth twice a 14tabs Chaparro Jara 06/21/2018 - 100mg day Ozzy, 06/28/2018 Tablets RadhaFACSteve Naproxen take one tab by 90tabs M75.51 Chase Manning 02/24/2017 - 500mg Tablets mouth twice a day MD Faith 10/30/2018 with food Amoxicillin 1 tab by mouth 2 21caps Sal Portillo, 08/20/2016 - 250mg Capsules times per day x 10 [employer] 08/24/2016 days Benadryl Allergy 1-2 tab every H92.02 Sal Bandar, 08/20/2016 - 25mg Tablets 6hours x 2-3 days [employer] 09/03/2016 then take as needed Afrin 12 Hour follow instruction 1units H92.02 Sal Bandar, 08/20/2016 - 0.05% Solution on the box [employer] 08/23/2016 Azithromycin 2 tabs by mouth on 6tabs J06.9 Sal Portillo, 08/20/2016 - 250mg Tablets day 1; 1 tab by [employer] 08/25/2016 mouth every day on days 2-5 Proair HFA 1 puff every 4 1units R06.2 Sal Portillo, 08/09/2016 - 108(90Base) hours as needed [employer] 08/23/2016 mcg/Act Aerosol for chest tightness or wheezing Benzonatate 1 capsule three 15caps R05 Sal Portillo 08/09/2016 - 100mg Capsules times a day take [employer] 08/23/2016 as needed. Amoxicillin/Clavulanate 1 tablet by mouth 20tabs J06.9 Sla Portillo, 08/09 - Potassium twice a day x's 10 [employer] 08/19/2016 875-125mg Tablets days Paroxetine HCL 1 tab po daily 30tabs F43.0 Sal Portillo, 02/05/2016 - 20mg Tablets (not taking) [employer] 08/20/2016 Azithromycin 2 tabs by mouth on 6tabs Matt Chonghn, 03/13/2015 - 250mg Tablets day one followed [employer] 02/05/2016 by 1 tab daily for the last 4 days Duloxetine HCL 1 by mouth every 311 Chanelle 09/26/2014 - 60mg Caps DR franco Tom M.D. 09/25/2014 Part Duloxetine HCL take one capsule 30caps 311 Chanelle 08/20/2014 - 20mg Caps by melba one time Radha Tom 09/25/2014 Part daily Tylenol #4 1 tab po q 4 hrs Molly 05/15/2009 - Shayy, 06/22/2010 Radha Soma tid 90tabs Marko 05/15/2009 - 350mg Tablets Shanel, 06/22/2010 Radha Tylenol With Codeine #4 1-2 tab every 180tabs 723.1 Molly 05/15/2009 - eight hours as Shayy, 06/22/2010 300-60mg Tablets needed M.D. Lotrimin AF apply to affected [facility]% Cream areas twice a day Shayy, 06/22/2010 MRuby Soma onetwice a day 60tabs 723.1 [facility] 05/15[facility]2009 - 350 Tablets Shayy, 06/22/2010 M.Estefani Buspirone HCL 1 po bid 90tabs Unknown - 15mg Tablets 06/22/2010 Gabapentin 1 po tid 90caps Unknown - 300mg Capsules 08/20/2014 Lotrel 1 po bid 90caps Unknown - 10-40mg Capsules 08/20/2014 Ambien 1 po qhs prn sleep 30tabs Unknown - 10mg Tablets insomnia 07/06/2010 Medications Administered in Office Medication SIG Qnty Indications Ordering Provider Date No Injection Chase Cuevas MD 09/19/2018 Injection Depomedrol 40MG Chase Cuevas MD 09/19/2018 Injection Depomedrol 40MG Chase Cuevas MD 08/24/2018 Injection Depomedrol 40MG Chase Cuevas MD 02/24/2017 Injection PPD Nurse Visit [place] 11/11/2014 Injection Immunizations CPT Code Status Date Vaccine Lot # [id number] Given 03/14/2015 Afluria Vaccine Q2037 Given 09/26/2014 Fluvirin Im 3Yrs And Older Vital Signs Date Vital Result Comment 10/31/2018 8:48am Height 64 inches 5'4" Weight 240.00 lb Heart Rate 78 /min BP Systolic 130 mmHg BP Diastolic 78 mmHg Respiratory Rate 14 /min Pain Level 8 BMI (Body Mass Index) 41.2 kg/m2 10/10/2018 3:16pm Height 64 inches 5'4" Heart Rate 76 /min BP Systolic Sitting 124 mmHg BP Diastolic Sitting 98 mmHg Pain Level 8 O2 % BldC Oximetry 92 % 09/19/2018 7:57am Height 64 inches 5'4" Weight 260.00 lb Heart Rate 96 /min Body Temperature 96.1 F Pain Level 5 O2 % BldC Oximetry 97 % BMI (Body Mass Index) 44.6 kg/m2 08/24/2018 10:02am Height 64 inches 5'4" Weight 260.00 lb Heart Rate 75 /min BP Systolic 186 mmHg "nerves" BP Diastolic 118 mmHg "nerves" Respiratory Rate 18 /min Body Temperature 98.8 F Pain Level 6 BMI (Body Mass Index) 44.6 kg/m2 08/01/2018 1:02pm Height 64 inches 5'4" Weight 256.00 lb Heart Rate 60 /min BP Systolic 144 mmHg BP Diastolic 100 mmHg Body Temperature 98.7 F Pain Level 8 BMI (Body Mass Index) 43.9 kg/m2 06/21/2018 12:56pm Height 64 inches 5'4" Weight 254.00 lb Heart Rate 75 /min BP Systolic Sitting 110 mmHg BP Diastolic Sitting 86 mmHg Body Temperature 98.4 F O2 % BldC Oximetry 97 % BMI (Body Mass Index) 43.6 kg/m2 02/24/2017 8:30am Height 64 inches 5'4" Weight 215.00 lb Heart Rate 92 /min Respiratory Rate 14 /min Body Temperature 97.7 F Pain Level 10 BMI (Body Mass Index) 36.9 kg/m2 08/20/2016 12:40pm Weight 253.25 lb Heart Rate 82 /min BP Systolic Sitting 122 mmHg BP Diastolic Sitting 86 mmHg Body Temperature 98.5 F O2 % BldC Oximetry 96 % 08/09/2016 10:12am Weight 248.12 lb Heart Rate 77 /min BP Systolic Sitting 148 mmHg BP Diastolic Sitting 82 mmHg Body Temperature 98.8 F O2 % BldC Oximetry 99 % 02/05/2016 2:54pm Weight 236.00 lb Heart Rate 108 /min BP Systolic Sitting 124 mmHg BP Diastolic Sitting 76 mmHg O2 % BldC Oximetry 98 % 03/11/2015 3:09pm Weight 237.00 lb Heart Rate 60 /min BP Systolic Sitting 124 mmHg BP Diastolic Sitting 82 mmHg Body Temperature 99.4 F 10/31/2014 8:25am Height 63.5 inches 5'3.50" Weight 243.38 lb Heart Rate 83 /min BP Systolic Sitting 142 mmHg BP Diastolic Sitting 83 mmHg Body Temperature 98.8 F BMI (Body Mass Index) 42.4 kg/m2 09/26/2014 8:49am Height 64 inches 5'4" Weight 247.00 lb Heart Rate 56 /min BP Systolic Sitting 140 mmHg BP Diastolic Sitting 76 mmHg Respiratory Rate 20 /min Body Temperature 98.0 F O2 % BldC Oximetry 98 % BMI (Body Mass Index) 42.4 kg/m2 Neck Circumference in inches 15.5 08/20/2014 9:04am Height 64 inches 5'4" Weight 257.00 lb Heart Rate 79 /min BP Systolic Sitting 142 mmHg BP Diastolic Sitting 80 mmHg Body Temperature 97.8 F BMI (Body Mass Index) 44.1 kg/m2 07/06/2010 9:26am Weight 211.00 lb Heart Rate 84 /min BP Systolic Sitting 130 mmHg BP Diastolic Sitting 84 mmHg O2 % BldC Oximetry 97 % 06/22/2010 3:23pm Weight 223.00 lb Heart Rate 76 /min BP Systolic Sitting 150 mmHg BP Diastolic Sitting 104 mmHg 05/15/2009 9:02am Weight 228.00 lb Heart Rate 80 /min BP Systolic Sitting 156 mmHg BP Diastolic Sitting 104 mmHg Respiratory Rate 16 /min Body Temperature 97.9 F Results Test Date Facility Test Result H/L Range Note Laboratory test 06/16/2018 [facility] Rapid SEE RESULT [address] [place] [address] Antigen [phone] Rapid Influenza 06/16/2018 [facility] Influenza A NEGATIVE Negative 2 A & B Molecular [address] [place] [address] [phone] Influenza B Molecular NEGATIVE Negative Laboratory test 08/09/2016 [facility] Rapid SEE RESULT 3, [address] [place] [address] Antigen [phone] Rapid Influenza 08/09/2016 [facility] Influenza A NEGATIVE N Negative 5 A & B Molecular [address] [place] [address] [phone] Influenza B Molecular NEGATIVE N Negative Laboratory test 03/11/2015 [facility] Throat-Beta SEE RESULT [address] [place] [address] [phone] Laboratory test 03/11/2015 [employer] [facility] A neg finding Strep Comp Metabolic 09/26/2014 [facility] Sodium 134 mmol/L N 133- 1 [address] [place] [address] [phone] Potassium 4.7 mmol/L N 3.5-5.0 Chloride 104 mmol/L N 101-111 Co2 Carbon Dioxide 27 mmol/L N 22-32 Anion Gap 3 mmol/L N 2-11 Glucose 112 mg/dL High 70-100 Blood Urea Nitrogen 16 mg/dL N 6-24 Creatinine 0.78 mg/dL N 0.51-0.95 BUN/Creatinine Ratio 20.5 High 8-20 Calcium 9.5 mg/dL N 8.6-10.3 Total Protein 6.8 g/dL N 6.4-8.9 Albumin 4.3 g/dL N 3.2-5.2 Globulin 2.5 g/dL N 2-4 Albumin/Globulin Ratio 1.7 N 1-3 Total Bilirubin 0.50 mg/dL N 0.2-1.0 Alkaline Phosphatase 63 U/L N 34-104 Alt 18 U/L N 7-52 Ast 13 U/L N 13-39 Egfr Non- 79.5 N >60 Egfr 102.3 N >60 8 Lipid Profile 09/26/2014 [facility] Triglycerides 277 mg/dL N 9 (Trig/Chol/HDL) [address] [place] [address] [phone] Cholesterol 296 mg/dL N 10 HDL Cholesterol 42.2 mg/dL N 11 LDL Cholesterol 198 mg/dL N 12 Lipid Profile 06/25/2010 [facility] Triglyceride 315 mg/dL High 40-200 (Trig/Chol/HDL) [address] [place] [address] [phone] Cholesterol 289 mg/dL High Less Than 200 13 High Density Lipoprotein 48 mg/dL 40-60 14 Cholesterol/HDL Ratio 6.02 AVERAGE High 1-4.44 Low Density Lipoprotein 178 mg/dL High Less Than 100 15 Comp Metabolic Panel 06/25/2010 [facility] Sodium 135 mmol/L 135-145 [address] [place] [address] [phone] Potassium 4.9 mmol/L 3.5-5.0 Chloride 102 mmol/L 101-111 Co2 (Carbon Dioxide) 29.0 mmol/L 22-32 Anion Gap 4.0 mmol/L 2-11 16 Glucose 111 mg/dL High 70-100 BUN 14 mg/dL 6-24 Creatinine 0.70 mg/dL 0.50-1.40 One Over Creatinine 1.40 BUN/Creatinine Ratio 20.0 8-20 Calcium 9.5 mg/dL 8.1-9.9 Total Protein 6.0 GM/DL Low 6.2-8.1 Albumin 4.0 GM/DL 3.6-5.4 Globulin 2.0 GM/DL 2-4 Albumin/Globulin Ratio 2.0 1-3 Bilirubin Total 0.5 mg/dL 0.4-1.5 17 Alkaline Phosphatase 67 U/L 30-110 Alt (SGPT) 36 U/L 14-54 Ast (Sgot) 18 U/L 12-42 eGFR Non- 97.5 > 60 eGFR 118.0 > 60 18 Laboratory test finding 06/25/2010 [facility] Cortisol 2.6 g/ dL [address] [place] [id number] [phone] 1 SEE RESULT BELOW Name: MARGIE RENEE : [address]: Deon Milner MD Acct: [id number] Unit: [id number] AGE: 48 Location: ED Re06/16/18 SEX: F Status: REG ER SPEC: [id number] RUDI: 06/16/[address]: Nenita AGGARWAL REQ: [id number] RECD: 06/16/18 STATUS: MENG LAUGHLIN DR: Chaparro Preciado MD _ SOURCE: NASAL SPDESC: ORDERED: Flu A B Request Procedure Result Reported Site Rapid Influenza A B Request Final 06/16/18658 ML Specimen received for Influenza A/B Molecular testing * ML - Main Lab . END OF REPORT DEPARTMENT OF PATHOLOGY, [address] [place] [address] Humza Knapp M.D. Director LINDA # [id number] 2 Chisel Trimmer: [id number] 4 SEE RESULT BELOW Name: MARGIE RENEE : [address]: Sal Portillo NP Acct: [id number] Unit: [id number] AGE: 46 Location: [facility] Re08/09/16 SEX: F Status: REG REF SPEC: [id number] RUDI: 08/09/16-1103 [facility] DR: Sal Portillo NP REQ: [id number] RECD: 08/09/16120 STATUS: COMP _ SOURCE: [facility]: ORDERED: Flu A B Request COMMENTS: [id number] Procedure Result Reported Site Rapid Influenza A B Request Final 08/09/16- 1405 ML Specimen received for Influenza A/B Molecular testing * ML - MAIN LAB ([facility]) . END OF REPORT * ML=Testing performed at Main Lab DEPARTMENT OF PATHOLOGY, [address] [place] [address] Humza Knapp M.D. Director LINDA # [id number] 5 Chisel Trimmer: [id number] SOTO HALL 6 SEE RESULT BELOW Name: MARGIE RENEE : [address]: Matt Smith NP Acct: [id number] Unit: [id number] AGE: 44 Location: [facility] Re03/11/15 SEX: F Status: REG REF SPEC: [id number] RUDI: 03/11/15-1854 [facility] DR: Matt Smith NP REQ: [id number] RECD: 03/11/15 STATUS: COMP _ SOURCE: THROAT SPDESC: ORDERED: Throat Beta Str Procedure Result Verified Site Throat Beta Strep Culture Final 03/13/15- 0907 ML Negative For Group A Beta Streptococcus * ML - MAIN LAB ([facility]) . END OF REPORT * ML=Testing performed at Main Lab DEPARTMENT OF PATHOLOGY, [address] [place] [address] Humza Knapp M.D. Director [facility] # [id number] 8 Because ethnic data is not always readily available, this report includes an eGFR for both -Americans and non- Americans. The National Kidney Disease Education Program (NKDEP) does not endorse the use of the MDRD equation for patients that are not between the ages of 18 and 70, are , have extremes of body size, muscle mass, or nutritional status, or are non- or non-. According to the National Kidney Foundation, irrespective of diagnosis, the stage of the disease is based on the level of kidney function: Stage Description GFR(mL/min/1.73 m(2)) 1 Kidney damage with normal or decreased GFR 90 2 Kidney damage with mild decrease in GFR 60-89 3 Moderate decrease in GFR 30-59 4 Severe decrease in GFR 15-29 5 Kidney failure <15 (or dialysis) 9 Desirable <150 Borderline high 150-199 High 200-499 Very High >500 10 Desirable <200 Borderline high 200-239 High >239 11 Low <40 Desirable: 40-60 High: >60 12 Desirable: <100 mg/dL Near Optimal: 100-129 mg/dL Borderline High: 130-159 mg/dL High: 160-189 mg/dL Very High: >189 mg/dL 13 CHOLESTEROL INTERPRETATION: Desirable: Less than 200 MG/DL Borderline-High Risk: 200-239 MG/DL High-Risk: 240 MG/DL and over 14 HDL INTERPRETATION: Undesirable: High Risk: Less than 40 MG/DL Desirable: Low Risk: Greater than 60 MG/DL 15 LDL INTERPRETATION: Low Risk Optimal Level: LDL Less than 100 MG/DL Near or Above Optimal: LDL 100-129 MG/DL Borderline High Risk: LDL 130-159 MG/DL High Risk: LDL 160-189 MG/DL Very High Risk: LDL Greater than 189 MG/DL 16 Anion gap measurement may be of limited value in the presence of any alkalosis, especially in a combined acid base disorder. . 17 A metabolite of Naproxen, O-desmethylnaproxen, has been shown to interfere with the Jendrassik-Kevin method for measuring total bilirubin. Samples from patients who have taken Naproxen have shown spurious elevation in total bilirubin levels. 18 Because ethnic data is not always readily available, this report includes an eGFR for both -Americans and non- Americans. The National Kidney Disease Education Program (NKDEP) does not endorse the use of the MDRD equation for patients that are not between the ages of 18 and 70, are , have extremes of body size, muscle mass, or nutritional status, or are non- or non-. According to the National Kidney Foundation, irrespective of diagnosis, the stage of the disease is based on the level of kidney function: Stage Description GFR(mL/min/1.73 m(2)) 1 Kidney damage with normal or decreased GFR 90 2 Kidney damage with mild decrease in GFR 60-89 3 Moderate decrease in GFR 30-59 4 Severe decrease in GFR 15-29 5 Kidney failure <15 (or dialysis) 19 REFERENCE RANGE: AM 8.7-22.4 PM LESS THAN 10 . Procedures Date Code Description Status 09/19/201800848 Inject/Drain Joint/Bursa Intermediate W/O US Completed 08/24/2018 Inject/Drain Joint/Bursa Major W/O US Completed 02/24/2017 Inject/Drain Joint/Bursa Major W/O US Completed 12/11/2012 26648 FX Treatment Closed Phalanx Other Than Great Toe W/O Completed Manip 11/04/2011 [id number] Colonoscopy Completed 07/29/2011 [id number] Mammogram Completed 03/11/2010 82407 Rad Exam; Fingers Completed 12/17/2009 13482 EKG, Interpretation Only Completed 08/20/2009 85650 Rad Exam; Fingers Completed 08/06/2009 64951 Gauntlet Cast Application Completed 08/06/2009 07495 Rad Exam; Fingers Completed 07/23/2009 87819 Gauntlet Cast Application Completed 07/18/2009 33273 Rad Exam; Fingers Completed 07/18/2009 62591 Short Arm Cast Application Completed 07/15/2009 18037 Rad Exam; Fingers Completed 07/14/2009 14785 Gauntlet Cast Application Completed 07/09/2009 19563 Rad Exam; Fingers Completed 07/01/2009 25102 Open TX Articular FX,Involv Metacarpophalangeal Or Completed Interphal JT 07/01/2009 78555 Osteotomy Phalanx Of Finger,Ea Completed 07/01/2009 16521 Osteotomy Phalanx Of Finger,Ea Completed 07/01/2009 78330 Bone Graft Any Donor Area Minr Or SM (Eg Dowel Or Completed Button) 07/01/2009 97141 Bone Graft Any Donor Area Minr Or SM (Eg Dowel Or Completed Button) 06/30/2009 11762 Rad Exam; Fingers Completed 06/23/2009 95142 Rad Exam; Hand Comp Completed 06/23/2009 22435 Closed TX Articular FX,Invol Metacarpophalangeal Or Completed Interphal JT Encounters Type Date Location Provider Dx Diagnosis Office Visit 10/10/2018 Orthopedic Chase Manning S46.011D Strain of 3:15p Services Of Christen Cuevas MD [facility]/bc the rotator cuff of right shoulder, subs M54.12 Radiculopathy, cervical region M75.51 Bursitis of right shoulder Office Visit 09/19/2018 8:15a Orthopedic Chase Manning S46.011D Strain of Services Of MD merry Cuevas/bc the C.MEvelinA. rotator cuff of right shoulder, subs M54.12 Radiculopathy, cervical region M75.51 Bursitis of right shoulder M25.521 Pain in right elbow Office Visit 08/24/2018 10:15a Orthopedic Chase F S46.011D Strain of Services Of MD Faith musc/tend the C.M.A. rotator cuff of right shoulder, subs M54.12 Radiculopathy, cervical region M75.51 Bursitis of right shoulder Office Visit 08/01/2018 Orthopedic Chase Manning M54.12 Radiculopathy, 1:00p Services Of MD Faith cervical region C.M.A. S43.491A Other sprain of right shoulder joint, initial encounter S53.401A Unspecified sprain of right elbow, initial encounter M54.12 Radiculopathy, cervical region S43.491A Other sprain of right shoulder joint, initial encounter S53.401A Unspecified sprain of right elbow, initial encounter Office Visit 06/21/2018 1:00p [facility] Internal Chaparro Jara J40 Bronchitis, not Medicine - [place] Radha Preciado,FACP specified as acute Rd or chronic Z12.31 Encntr screen mammogram for malignant neoplasm of breast Office Visit 02/24/2017 8:15a Orthopedic Chase Kerri M75.51 Bursitis of Services Of MD Faith right shoulder C.M.A. M75.41 Impingement syndrome of right shoulder Office Visit 08/20/2016 12:40p [facility] Internal Sal Portillo, J06.9 Acute upper Medicine - [place] [employer] respiratory Rd infection, unspecified H92.02 Otalgia, left ear Office Visit 08/09/2016 10:40a [facility] Internal Sal Portillo J06.9 Acute upper Medicine - [place] [employer] WORK[employer] respiratory Rd infection, unspecified R05 Cough R06.2 Wheezing Office Visit 02/05/2016 2:40p [facility] Internal Sal Portillo, F43.0 Acute stress Medicine - [place] [employer] WORKER reaction Rd G47.00 Insomnia, unspecified Office Visit 03/11/2015 9:30a [facility] Internal Matt Smith, J02.9 Acute pharyngitis, Medicine [employer] unspecified R07.0 Pain in throat Office Visit 10/31/2014 8:30a [facility] Internal Chaparro Jara 401.1 Hypertension Jeramy Preciado M.D.,FACP Benign [place] [address] 272.4 Hyperlipidemia Other Unspec 780.53 Hypersomnia W/ Sleep Apnea Unspecified 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 780.53 Hypersomnia W/ Sleep Services Of Radha Tobar Sleep Apnea [employer] Unspecified 278.01 Obesity Morbid V85.41 Body Mass Index 40.0-44.9, Adult V58.69 Medications Prison (Current) Use Encounter Office Visit 08/20/2014 9:10a [employer] Internal Chanelle Tom, 311 Depressive Medicine M.DEvelin Disorder Not Elsewhere Spec 272.4 Hyperlipidemia Other Unspec 401.1 Hypertension Benign 780.52 Insomnia Unspecified Office Visit 12/11/2012 10:30a Orthopedic Ernie 826.0 FX Phalanges Of Services Of Radha Jeronimo Foot One Or More C.M.A. Closed Office Visit 07/06/2010 9:20a DO Not Use [employer] AT Marko 719.41 Pain Joint [facility], Shoulder Region M.DEvelin 790.6 Abnormal Blood Chemistry Other 272.4 Hyperlipidemia Other Unspec Office Visit 06/22/2010 3:20p DO Not Use [employer] Marko 345.10 [place]ile[place] M.[place]. Convulsive W/O Intractable 401.1 Hypertension Benign 719.41 Pain Joint Shoulder Region 724.2 Lumbago 780.52 Insomnia Unspecified 278.00 Obesity Unspec Office Visit 03/11/2010 8:00a Orthopedic Lamberto Moran 727.05 Tenosynovitis Hand Services Of Radha & Wrist Other C.M.A. Office Visit 06/30/2009 1:30p Orthopedic Lamberto Moran, 816.00 FX One Or More Services Of Radha Phalanx Or C.M.A. Phalanges Closed Unspec Office Visit 05/15/2009 9:00a DO Not Use [employer] AT Molly 719.41 Pain Joint Shoulder [facility] M.D. 723.1 Cervicalgia 110.4 Dermatophytosis Foot Plan of Treatment Future Appointment(s):12/12/2018 9:45 am - Chase Cuevas MD at Orthopedic Services Of C.M.A.10/31/2018 - Chase Cuevas, MDS46.011D Strain of muscle(s) and tendon(s) of the rotator cuff of rigNew Therapy:Physical TherapyFollow up:Follow up: 6 weeks with me. Follow up with Moypurgestella about neckM54.12 Radiculopathy, cervical hptkglW62.51 Bursitis of right shoulder
== END 2018-11-12 20:47 | disposition left against medical advice (07) ==
LOC: ED 18:33
DX: S19.9XXA Unspecified injury of neck, initial encounter (principal); S49.90XA Unspecified injury of shoulder and upper arm, unspecified arm, initial encounter; X58.XXXA Exposure to other specified factors, initial encounter; Y92.9 Unspecified place or not applicable; Z53.21 Procedure and treatment not carried out due to patient leaving prior to being seen by health care provider

== ENCOUNTER → 2018-11-22 04:36 | Emergency (ER) | payer OTHER ==
--- NOTE | 2018-11-22 05:09 | ED ---
Upper Extremity Pain - HPI Summary HPI Summary: 48 year old F presenting to [facility] accompanied by female friend with a chief complaint of right shoulder pain radiating to right hand since injuring her neck and shoulder in July 2018 while at work. The patient rates the pain 9/ 10 in severity. Symptoms aggravated by nothing. Symptoms alleviated by nothing. Patient reports neck pain, right hand numbness, and insomnia. Patient has treated the pain with codeine and ibuprofen. Patient had MRI done on October 22, 2018 which showed tendinitis in her right shoulder and herniated disc in L4 and L5. - History of Current Complaint Chief Complaint: EDShoulderClavicleInj Stated Complaint: HURT A FEW MONTHS AGO AT WORK AND ARM STILL HURTS Time Seen by Provider: 11/22/18 04:59 Hx Obtained From: Patient Mechanism Of Injury: Other - injury at work Onset/Duration: Started Weeks Ago - jul 2018, Still Present Timing: Constant, Lasting Weeks - jul 2018 Severity Currently: Severe Pain Location: Shoulder - right, Other: - neck Aggravating Factor(s): Nothing Alleviating Factor(s): Nothing Associated Signs & Symptoms: Positive: Other - neck pain, right hand numbness, and insomnia - Allergies/Home Medications Allergies/Adverse Reactions: Allergies Allergy/AdvReac Type Severity Reaction Status Date / Time acetaminophen Allergy Itching Verified 11/22/18 04:59 [From Darvocet-N] cyclobenzaprine Allergy Nausea Verified 11/22/18 04:59 [From Flexeril] oxycodone [From Percocet] Allergy Hives Verified 11/22/18 04:59 phenylephrine Allergy See Comment Verified 11/22/18 04:59 [From Sudafed PE] propoxyphene Allergy Itching Verified 11/22/18 04:59 [From Darvocet-N] PMH/Surg Hx/FS Hx/Imm Hx Previously Healthy: No Endocrine/Hematology History: Denies: Hx Anticoagulant Therapy, Hx Diabetes, Hx Sickle Cell Disease, Hx Thyroid Disease Cardiovascular History: Denies: Hx Hypertension, Hx Pacemaker/ICD Respiratory History: Denies: Hx Asthma, Hx Chronic Obstructive Pulmonary Disease (COPD), Hx Pneumonia GI History: Denies: Hx Ulcer History: Denies: Hx Renal Disease Sensory History: Denies: Hx Legally Blind, Hx Deafness, Hx Hearing Aid Opthamlomology History: Denies: Hx Legally Blind Neurological History: Reports: Hx Seizures - no longer on medication for, Other Neuro Impairments/Disorders - hx of siezures, 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 Denies: Hx Dementia Psychiatric History: Reports: Hx Substance Abuse Denies: Hx Panic Disorder - Cancer History Hx Chemotherapy: No Hx Radiation Therapy: No - Surgical History Surgery Procedure, Year, and Place: RIGHT THUMB, 4 RT SHOULDER SURGERIES 1997- 2000 - Immunization History Date of Tetanus Vaccine: UNKNOWN Infectious Disease History: No Infectious Disease History: Denies: Hx Clostridium Difficile, Hx Hepatitis, Hx Human Immunodeficiency Virus (HIV), Hx of Known/Suspected MRSA, Hx Shingles, Hx Tuberculosis, Hx Known/ Suspected VRE, Hx Known/Suspected VRSA, History Other Infectious Disease, Traveled Outside the [place] in Last 30 Days - Family History Known Family History: Negative: Hypertension, Diabetes - Social History Alcohol Use: None Hx Substance Use: Yes Substance Use Type: Reports: Prescribed Substance Use Comment - Amount & Last Used: soma, tylenol with codeine Hx Tobacco Use: No Smoking Status (MU): Never Smoked Tobacco Review of Systems Positive: Other - right shoulder pain, neck pain Neurological: Other - right hand numbness Positive: Other - insomnia All Other Systems Reviewed And Are Negative: Yes Physical Exam - Summary Physical Exam Summary: VITAL SIGNS: Reviewed. GENERAL: Patient is a well-developed and nourished FEMALE who is lying comfortable in the stretcher. Patient is not in any acute respiratory distress. HEAD AND FACE: No signs of trauma. No ecchymosis, hematomas or skull depressions. No sinus tenderness. EYES: PERRLA, EOMI x 2, No injected conjunctiva, no nystagmus. EARS: Hearing grossly intact. Ear canals and tympanic membranes are within normal limits. MOUTH: Oropharynx within normal limits. NECK: Supple, trachea is midline, no adenopathy, no JVD, no carotid bruit, no c- spine tenderness, neck with full ROM CHEST: Symmetric, no tenderness at palpation LUNGS: Clear to auscultation bilaterally. No wheezing or crackles. CVS: Regular rate and rhythm, S1 and S2 present, no murmurs or gallops appreciated. ABDOMEN: Soft, non-tender. No signs of distention. No rebound no guarding, and no masses palpated. Bowel sounds are normal. EXTREMITIES: Patient has shoulder pain with abduction beyond 60 degrees NEURO: Alert and oriented x 3. No acute neurological deficits. Speech is normal and follows commands. SKIN: Dry and warm Triage Information Reviewed: Yes Vital Signs On Initial Exam: Initial Vitals Temp Pulse Resp BP Pulse Ox 98.5 F 55 16 183/111 99 11/22/18 04:44 11/22/18 04:44 11/22/18 04:44 11/22/18 04:44 11/22/18 04:44 Vital Signs Reviewed: Yes Diagnostics - Vital Signs Vital Signs Temp Pulse Resp BP Pulse Ox 11/22/18 04:44 98.5 F 55 16 183/111 99 - Laboratory Lab Statement: Any lab studies that have been ordered have been reviewed, and results considered in the medical decision making process. Course/Dx - Course Course Of Treatment: 48 year old F [place] [facility] accompanied by female friend with a chief complaint of right shoulder pain radiating to right hand since injuring her neck and shoulder in July 2018 while at work. Patient reports neck pain, right hand numbness, and insomnia. Patient had MRI done on October 22, 2018 which showed tendinitis in her right shoulder and herniated disc in L4 and L5. Physical exam findings: patient has shoulder pain with abduction beyond 60 degrees. In the ED course, the patient was given Decadron, Toradol, and Ultram. Patient feels better and would like to go home. Patient will be discharged home with prescription for Decadron and follow up from neurosurgery in 1 day. Patient was instructed to return to ED for new or worsening symptoms. Patient understands and is agreeable to discharge plan. - Diagnoses Provider Diagnoses: Shoulder tendinitis, Cervical radiculopathy Discharge - Sign-Out/Discharge Documenting (check all that apply): Patient Departure - DIscharge Patient Received Moderate/Deep Sedation with Procedure: No - Discharge Plan Condition: Stable Disposition: HOME Prescriptions: Dexamethasone TAB* [Decadron TAB*] 4 mg PO BID #10 tab Patient Education Materials: Tendinitis (ED), Shoulder Pain (ED) Referrals: Franklin Singleton MD [Medical Doctor] - 1 Day Additional Instructions: Follow up with Dr. Singleton, neurosurgery, in 1 day. PLEASE RETURN TO THE EMERGENCY DEPARTMENT IMMEDIATELY FOR WORSENING OR CONCERNING SYMPTOMS. - Attestation Statements Document Initiated by Scribe: Yes Documenting Scribe: Rosmery Middleton Provider For Whom Scribe is Documenting (Include Credential): Deon Milner MD Scribe Attestation: Rosmery Ortega, scribed for Deon Milner MD on 11/22/18 at 0522. Status of Scribe Document: Ready
[2018-11-22] MEDS: traMADol TAB* 50 MG PO ONE (05:23)
[2018-11-22] MEDS: Dexamethasone TAB* 4 MG PO ONE (05:24)
[2018-11-22] MEDS: Ketorolac INJ* 30 MG/ML 1 ML VIAL IM ONE (05:24)
[2018-11-22 05:40] VITALS: BP 174/102
== END | disposition home or self-care (01) ==
LOC: ED 04:36
DX: M75.91 Shoulder lesion, unspecified, right shoulder (principal); M54.12 Radiculopathy, cervical region
CPT/HCPCS: 96372; 99283; A9270-GY; J1885; J8540

== ENCOUNTER → 2019-03-21 08:28 | Day surgery (SDC) | payer BC, OTHER ==
[~2019-03-21 08:28] MED LIST changes: -Acetaminophen TAB* 325 MG PO ONE; +Buffered Lidocaine 1% SYRIN* 1 ML/SYRINGE INTRADERM ONE; +Bupivacaine 0.25% W/EPI* 10 ML SDV ONE; +Dexamethasone IV* 4 MG/ML 1 ML (4 MG) ONE; +EPINEPHRINE 1 MG/ML 1 ML VIAL ONE; +Famotidine IV* 10 MG/ML 2 ML (20 mg) ONE; +Labetalol IV* 5 MG/ML 20 ML VIAL ONE; +Lidocaine 2% PF * 5 ML VIAL ONE; +Midazolam* 1 MG/ML 2 ML VIAL (2 MG) ONE; -NS 0.9% 1000 ML** 1,000 ML IV ONE; -Ondansetron INJ* 2 MG/ML VIAL IV ONE; +Propofol* 10 MG/ML 20 ML BTL ONE; +Succinylcholine* 20 MG/ML 10 ML VIAL ONE; +ceFAZolin 2 GM PREMIX in ORs 0 GM/0 ML BAG ONE; +fentaNYL* 50 MCG/ML 2 ML VIAL (100 MCG VIAL) ONE
[2019-03-21] MEDS: Famotidine IV* 10 MG/ML 2 ML (20 mg) IV ONE ×2 (09:42→10:03)
[2019-03-21] MEDS: Dexamethasone IV* 4 MG/ML 1 ML (4 MG) IV SLOW PU ONE ×2 (09:42→10:03)
[2019-03-21] MEDS: Lactated Ringers 1000 ML Bag* 1,000 ML IV SCH ×2 (09:43→10:04)
[2019-03-21 09:52] VITALS: BP 176/104
--- NOTE | 2019-03-21 19:42 | PN ---
Progress Note - Progress Note Date of Service: 03/21/19 - Anesthesia Note Note: A follow up call to Lin and she stated she took her antihypertensive medication when she got home and her pressures have been 140-150/90's. She has no symptoms of SOB, CP. She has a appointment with PMD on Tuesday and encouraged to continue to take her medication as prescribed. Dr. Qureshi
== END | disposition home or self-care (01) ==
LOC: OR 08:28
PROVIDERS: ATTEND Orthopaedic Surgery
DX: S46.011D Strain of muscle(s) and tendon(s) of the rotator cuff of right shoulder, subsequent encounter (principal); Z53.09 Procedure and treatment not carried out because of other contraindication; I10 Essential (primary) hypertension; S46.111D Strain of muscle, fascia and tendon of long head of biceps, right arm, subsequent encounter; M75.51 Bursitis of right shoulder; M54.12 Radiculopathy, cervical region
CPT/HCPCS: J0330; J0690; J1100; J2250; J2704; J3010

== ENCOUNTER 2019-05-11 17:07 | Emergency (ER) | payer SELFPAY ==
[2019-05-11 17:22] VITALS: BP 137/103
--- OUTSIDE RECORDS SUMMARY | 2019-05-11 19:02 | XMS REPORT | Continuity of Care Document ---
:1970 External Reference #:[id number] Author Name Jane Canales MD (transmitted by agent of provider Ioana Addison) Address [address], [place] [address] Care Team Providers Name Role Phone Chaparro Preciado MD - Internal Care Team Information Catheterization Laboratory Technician [phone] Medicine Jane Canales M.D. - Family Medicine Care Team Information Catheterization Laboratory Technician [phone] Problems Active Problems Provider Date Depressive disorder Chaparro Preciado M.D.,FACP Onset: 10/23/2014 Hyperlipidemia Chaparro Preciado M.D.,FACP Onset: 10/23/2014 Impaired fasting glycaemia Chaparro Preciado M.D.,FACP Onset: 10/31/2014 Morbid obesity Chaparro Preciado M.D.,FACP Onset: 10/23/2014 Body mass index 40+ - severely obese Chaparro Preciado M.D.,FACP Onset: Strain of muscle(s) and tendon(s) of Chase Cuevas MD Onset: 10/10/2018 the rotator cuff of right shoulder, subsequent encounter Radiculopathy, cervical region Chase Cuevas MD Onset: 10/10/2018 Social History Type Date Description Comments Sex Unknown Tobacco Use Start: Unknown Never Smoked Cigarettes ETOH Use 06/21/2018 Denies alcohol use Recreational Drug Use Denies Drug Use Tobacco Use Start: Unknown Patient has never smoked Smoking Status Reviewed: 03/26/19 Patient has never smoked Exercise Type/Frequency Exercises sporadically Allergies, Adverse Reactions, Alerts Active Allergies Reaction Severity Comments Date Vicodin HIVES 05/15/2009 Darvocet HIVES 05/15/2009 Sudafed DIFFICULTY BREATHING 05/15/2009 Medications Active Medications SIG Qnty Indications Ordering Provider Date Alprazolam take one tablet 14tabs F41.9 Jane Canales MD 03/26/2019 0.25mg by mouth as Tablets needed for anxiety. Mucus Relief 1 tab bid 14tabs J01.90 Gege Weir, 03/14/2019 400mg TEXT TRANSCRIBER Tablets Fluticasone use 2 sprays in 16units J01.90 Gege Weir, 03/14/2019 Propionate each nostril one TEXT TRANSCRIBER 50mcg/Act time a day Suspension Ndrxq-0-Qzri Ethyl 1 capsules 2 180caps E78.1 Jane Canales MD 02/12/2019 Esters x/day, with food 1gm Capsules Amlodipine Besylate 1 by mouth every 30tabs R03.0 Jane Canales MD 2018 day 5mg Tablets Trazodone HCL 1/2-1 tablet at 30tabs Jane Canales MD 06/21/2018 50mg bedtime as needed Tablets Vitamin B-12 Every Day Unknown 08/14/2017 500mcg Tablets Ibuprofen four times a day 20tabs Chaparro Jara 10/31/2014 200mg as needed, takes Radha Preciado,FACP Tablets about 1-2 x/week Multi Vitamin Every Day Unknown 05/24/2014 Tablets Soma 1 po tid; Rx'd by 60tabs M54.5 Marko Ugarte, 06/22/[address] Mikey Garcia Tylenol/Codeine #4 tid prn 90tabs 719.41 Other Ordering 06/22/2010 Provider 300-60mg Tablets History Medications Zithromax Z-Jethro take 2 tabs by mouth 1tabs J20.9 Gege Weir, 2018 - 1st day of treatment TEXT TRANSCRIBER 03/26/2019 250mg Tablets then 1 tab by mouth for an additional 4 days. Decadron Twice Daily 10tabs Unknown 11/22/2018 - 4mg 01/08/2019 Tablets Valium take 1 -2 tabs by 2tabs Chase Manning 10/17/2018 - 5mg mouth as needed for [facility] 10/30/2018 Tablets anxiety and restlessness prior to mri scan Medications Administered in Office Medication SIG Qnty Indications Ordering Provider Date No Injection Chase Cuevas MD 09/19/2018 Injection Depomedrol 40MG Chase Cuevas MD 09/19/2018 Injection Depomedrol 40MG Chase Cuevas MD 08/24/2018 Injection Depomedrol 40MG Chase Cuevas MD 02/24/2017 Injection PPD Nurse Visit Amado 11/11/2014 Injection Immunizations CPT Code Status Date Vaccine Lot # [id number] Given 03/14/2015 Afluria Vaccine Q2037 Given 09/26/2014 Fluvirin Im 3Yrs And Older Vital Signs Date Vital Result Comment 03/26/2019 8:50am Height 64 inches 5'4" Weight 249.00 lb With Shoes Heart Rate 85 /min 1st 85 2nd -95 BP Systolic 153 mmHg left arm sitting - 1st b/p BP Diastolic 99 mmHg left arm sitting - 1st b/p BP Systolic Sitting 146 mmHg right arm - 2nd BP Diastolic Sitting 99 mmHg right arm - 2nd O2 % BldC Oximetry 97 % BMI (Body Mass Index) 42.7 kg/m2 03/14/2019 10:38am Height 64 inches 5'4" Weight 253.00 lb Heart Rate 73 /min BP Systolic 127 mmHg BP Diastolic 95 mmHg Body Temperature 97.2 F O2 % BldC Oximetry 97 % BMI (Body Mass Index) 43.4 kg/m2 Results Test Date Facility Test Result H/L Range Note Laboratory test 02/14/2019 [facility] Partial 36.2 seconds Normal 26.0-38.[address] [address] PTT [phone] Inr/Protime 02/14/2019 [facility] Inr 0.90 Normal 0.82-1.[address] [place] [address] [phone] Urinalysis 02/14/2019 [facility] Urine Color Yellow Profile [address] [place] [address] [phone] Urine Appearance Cloudy Urine Specific [place] 1.024 Normal 1.010-1.030 Urine pH 5.0 Normal 5-9 Urine Urobilinogen Negative Negative Urine Ketones Negative Negative Urine Protein Negative Negative Urine Leukocytes 1+ Abnormal Negative Urine Blood Negative Negative Urine Nitrite Negative Negative Urine Bilirubin Negative Negative Urine Glucose Negative Negative Urine White Blood Cell Trace(0-5/hpf) Absent Urine Red Blood Cell Absent Absent Urine Bacteria Absent Absent Urine Squamous Epithelial Cell Present Abnormal Absent CBC Auto 02/14/2019 [facility] White Blood 6.9 10^3/uL Normal 3.5-10.[address] [place] [address] [phone] Red Blood Count 4.62 10^6/uL Normal 3.70-4.87 Hemoglobin 12.7 g/dL Normal 12.0-16.0 Hematocrit 39 % Normal 35-47 Mean Corpuscular Volume 84 fL Normal 80-97 Mean Corpuscular Hemoglobin 28 pg Normal 27-31 Mean Corpuscular HGB Conc 33 g/dL Normal 31-36 Red Cell Distribution Width 14 % Normal 10-15 Platelet Count 270 10^3/uL Normal 150-450 Mean Platelet Volume 9.7 fL Normal 7.4-10.4 Abs Neutrophils 2.6 10^3/uL Normal 1.5-7.7 Abs Lymphocytes 3.4 10^3/uL Normal 1.0-4.8 Abs Monocytes 0.6 10^3/uL Normal 0-0.8 Abs Eosinophils 0.2 10^3/uL Normal 0-0.6 Abs Basophils 0.0 10^3/uL Normal 0-0.2 Abs Nucleated RBC 0.0 10^3/uL Granulocyte % 37.8 % Lymphocyte % 49.7 % Monocyte % 8.5 % Eosinophil % 3.4 % Basophil % 0.6 % Nucleated Red Blood Cells % 0.1 Basic Metabolic 02/14/2019 [facility] Sodium 140 mmol/L Normal 135-[address] [place] [address] [phone] Chloride 106 mmol/L Normal 101-111 Co2 Carbon Dioxide 26 mmol/L Normal 22-32 Glucose 103 mg/dL High 70-100 Blood Urea Nitrogen 16 mg/dL Normal 6-24 Creatinine 0.75 mg/dL Normal 0.51-0.95 BUN/Creatinine Ratio 21.3 High 8-20 Calcium 9.7 mg/dL Normal 8.6-10.3 Egfr Non- 81.8 >60 Egfr 99.0 >60 2 Potassium 5.1 mmol/L High 3.5-5.0 Anion Gap 8 mmol/L Normal 2-11 Urine Culture And 02/14/2019 [facility] Urine Culture SEE RESULT [address] [place] [address] [phone] Lipid Profile 01/09/2019 [facility] Triglycerides 411 mg/dL 4 (Trig/Chol/HDL) [address] [place] [address] [phone] Cholesterol 288 mg/dL 5 HDL Cholesterol 41.4 mg/dL 6 LDL Cholesterol (SEE NOTE) mg/dL 7 Liver Function 01/09/2019 [facility] Total Protein 6.5 g/dL Normal 6.4-8.[address] [place] [address] [phone] Albumin 4.2 g/dL Normal 3.2-5.2 Globulin 2.3 g/dL Normal 2-4 Albumin/Globulin Ratio 1.8 Normal 1-3 Total Bilirubin 0.30 mg/dL Normal 0.2-1.0 Direct Bilirubin 0.00 mg/dL Low 0.03-0.18 Alkaline Phosphatase 75 U/L Normal 34-104 Alt 31 U/L Normal 7-52 Ast 21 U/L Normal 13-39 Laboratory test 01/09/2019 [facility] LDL Cholesterol 157 mg/dL [address] [place] [address] [phone] 1 Standard intensity warfarin therapeutic range: 2.0-3.0 High intensity warfarin therapeutic range: 2.5-3.5 2 Because ethnic data is not always readily [...] 15-29 5 Kidney failure <15 (or dialysis) 3 SEE RESULT BELOW Name: MARGIE RENEE : [address]: Jane Canales MD Acct: [id number] Unit: [id number] AGE: 48 Location: [facility] Re02/14/19 SEX: F Status: REG REF SPEC: [id number] RUDI: 02/14/[address]: Jane Canales MD REQ: [id number] RECD: 02/14/19 STATUS: COMP _ SOURCE: URINE SPDESC: ORDERED: Urine Culture Procedure Result Reported Site Urine Culture Final 02/15/19- 1313 ML No growth of clinically significant organisms * ML - Main Lab . END OF REPORT DEPARTMENT OF PATHOLOGY, [address] [place] [address] Humza Knapp M.D. Director [facility] # [id number] 4 Desirable: <150 Borderline High: 150-199 High: 200-499 Very High: >500 5 Desirable: <200 Borderline High: 200-239 High: >239 6 Low: <40 Desirable: 40-60 High: >60 7 Unable to calculate LDL as triglyceride is > 400 8 Desirable: <100 Near Optimal: 100-129 Borderline High: 130-159 High: 160-189 Very High: >189 Procedures Date Code Description Status 02/12/2019 41412 EKG Tracing & Interpretation Completed 11/04/2011 61797188 Colonoscopy Completed 07/29/2011 15227681 Mammogram Completed Medical Devices Description No Information Available Encounters Type Date Location Provider Dx Diagnosis Office Visit 03/14/2019 [facility] Internal Gege Weir, J01.90 Acute sinusitis , 10:40a Medicine - Ccmob TEXT TRANSCRIBER unspecified J20.9 Acute bronchitis, unspecified S46.011D Strain of musc/tend the rotator cuff of right shoulder, subs Office Visit 02/12/2019 11:00a [facility] Internal Jane Canales Z01.818 Encounter for other Medicine - MD preprocedural Ccmob examination R03.0 Elevated blood-pressure reading, w/o diagnosis of htn E78.1 Pure hyperglyceridemia S46.011D Strain of musc/tend the rotator cuff of right shoulder, subs Office Visit 01/23/2019 9:45a Andra Manning S46.011D Strain of Orthopedics at [facility] musc/tend the [place] rotator cuff of right shoulder, subs S46.111D Strain of musc/fasc/tend long hd bicep, right arm, subs M75.51 Bursitis of right shoulder M54.12 Radiculopathy, cervical region Office Visit 01/16/2019 2:00p Andra Manning S46.011D Strain of Orthopedics at [facility] musc/tend the [place] rotator cuff of right shoulder, subs S46.111D Strain of musc/fasc/tend long hd bicep, right arm, subs Office Visit 01/09/2019 8:40a [employer] Internal Jane Canales, E78.5 Hyperlipidemia, Medicine - MD unspecified Ccmob F41.9 Anxiety disorder, unspecified S46.011D Strain of musc/tend the rotator cuff of right shoulder, subs Office Visit 12/19/2018 2:45p Andra Manning S46.011D Strain of Orthopedics at [facility] musc/tend the [place] rotator cuff of right shoulder, subs M54.12 Radiculopathy, cervical region M75.51 Bursitis of right shoulder M25.521 Pain in right elbow Office Visit 10/31/2018 8:45a Andra Manning S46.011D Strain of Orthopedics at [facility] musc/tend the [place] rotator cuff of right shoulder, subs M54.12 Radiculopathy, cervical region M75.51 Bursitis of right shoulder S46.011D Strain of musc/tend the rotator cuff of right shoulder, subs Office Visit 10/10/2018 3:15p Andra Manning S46.011D Strain of Orthopedics at [facility] musc/tend the [place] rotator cuff of right shoulder, subs M54.12 Radiculopathy, cervical region M75.51 Bursitis of right shoulder Assessments Date Code Description Provider 03/26/2019 I10 Essential (primary) hypertension Jane Canales MD 03/26/2019 J06.9 Acute upper respiratory infection, Jane Canales MD unspecified 03/26/2019 F41.9 Anxiety disorder, unspecified Jane Canales MD 03/14/2019 J01.90 Acute sinusitis, unspecified YONATHAN Ball 03/14/2019 J20.9 Acute bronchitis, unspecified YONATHAN Ball 03/14/2019 S46.011D Strain of muscle(s) and tendon(s) of the YONATHAN Ball rotator cuff of right shoulder, subsequent encounter 03/13/2019 S46.011D Strain of muscle(s) and tendon(s) of the Chase Cuevas MD rotator cuff of rig 03/13/2019 S46.111D Strain of muscle, fascia and tendon of Chase Cuevas MD long head of biceps, right arm, subsequent encounter 03/13/2019 M75.51 Bursitis of right shoulder Chase Cuevas MD 03/13/2019 M54.12 Radiculopathy, cervical region Chase Cuevas MD 02/12/2019 Z01.818 Encounter for other preprocedural Jane Canales MD examination 02/12/2019 R03.0 Elevated blood-pressure reading, without Jane Canales MD diagnosis of hypertension 02/12/2019 E78.1 Pure hyperglyceridemia Jane Canales MD 02/12/2019 S46.011D Strain of muscle(s) and tendon(s) of the Jane Canales MD rotator cuff of rig 02/01/2019 S46.011D Strain of muscle(s) and tendon(s) of the Chase Cuevas MD rotator cuff of rig 02/01/2019 S46.111D Strain of muscle, fascia and tendon of Chase Cuevas MD long head of biceps, right arm, subsequent encounter 02/01/2019 M75.51 Bursitis of right shoulder Chase Cuevas MD 02/01/2019 M54.12 Radiculopathy, cervical region Chase Cuevas MD 01/23/2019 S46.011D Strain of muscle(s) and tendon(s) of the Chase Cuevas MD rotator cuff of rig 01/23/2019 S46.111D Strain of muscle, fascia and tendon of Chase Cuevas MD long head of biceps, right arm, subsequent encounter 01/23/2019 M75.51 Bursitis of right shoulder Chase Cuevas MD 01/23/2019 M54.12 Radiculopathy, cervical region Chase Cuevas MD 01/21/2019 S46.011D Strain of muscle(s) and tendon(s) of the Chase Cuevas MD rotator cuff of right shoulder, subsequent encounter 01/16/2019 S46.011D Strain of muscle(s) and tendon(s) of the Chase Cuevas MD rotator cuff of rig 01/16/2019 S46.111D Strain of muscle, fascia and tendon of Chase Cuevas MD long head of biceps, right arm, subsequent encounter 01/09/2019 E78.5 Hyperlipidemia, unspecified Jane Canales MD 01/09/2019 F41.9 Anxiety disorder, unspecified Jane Canales MD 01/09/2019 S46.011D Strain of muscle(s) and tendon(s) of the Jane Canales MD rotator cuff of right shoulder, subsequent encounter 12/19/2018 S46.011D Strain of muscle(s) and tendon(s) of the Chase Cuevas MD rotator cuff of rig 12/19/2018 M54.12 Radiculopathy, cervical region Chase Cuevas MD 12/19/2018 M75.51 Bursitis of right shoulder Chase Cuevas MD 12/19/2018 M25.521 Pain in right elbow Chase Cuevas MD 10/31/2018 S46.011D Strain of muscle(s) and tendon(s) of the Chase Cuevas MD rotator cuff of rig 10/31/2018 M54.12 Radiculopathy, cervical region Chase Cuevas MD 10/31/2018 M75.51 Bursitis of right shoulder Chase Cuevas MD 10/31/2018 S46.011D Strain of muscle(s) and tendon(s) of the Chase Cuevas MD rotator cuff of right shoulder, subsequent encounter 10/10/2018 S46.011D Strain of muscle(s) and tendon(s) of the Chase Cuevas MD rotator cuff of rig 10/10/2018 M54.12 Radiculopathy, cervical region Chase Cuevas MD 10/10/2018 M75.51 Bursitis of right shoulder Chase Cuevas MD Plan of Treatment Future Appointment(s):04/04/2019 9:40 am - Jane Canales MD at [facility] Internal Medicine - [facility]03/30/2019 9:20 am - Nurse Visit A at [facility] Internal Medicine - [facility]04/03/2019 10:15 am - Chase Cuevas MD at [facility] at [id number]/16/2019 11:40 am - Jane Canales MD at [facility] Internal Medicine - [facility] - Jane Canales MDI10 Essential (primary) hypertensionComments:I am increasing your amlodipine to 10mg, and will have you come in on Tuesday for a nurse visit bloodpressure check, then will decide on adding another medicationFollow up:Nurse visit this Tuesday MD follow up March.9 Acute upper respiratory infection, unspecifiedComments:You have a viral upper respiratory infection. Ok to take Robitussin DM and Mucinex. (NO Sudafed or pseudoephedrine).For sinus congestion you may use saline nasal spray. You may find Afrin nasal spray helpful. Do not use this for more than 3 days in a row as you may get rebound sinus congestion.F41.9 Anxiety disorder, unspecifiedNew Medication:Alprazolam 0.25 mg - take one tablet by mouth as needed for anxiety. Functional Status Description No Information Available Mental Status Description No Information Available Referrals Description No Information Available
--- OUTSIDE RECORDS SUMMARY | 2019-05-11 19:02 | XMS REPORT | Continuity of Care Document ---
:1970 External Reference #:[id number] Author Name YONATHAN Ball (transmitted by agent of provider Alicia Fall) Address [address] [place] [id number] Care Team Providers Name Role Phone Chaparro Preciado MD - Internal Care Team Information Group Work Program Director Medicine Jane Canales M.D. - Family Medicine Care Team Information Group Work Program Director Problems Active Problems Provider Date Depressive disorder [...] Patient has never smoked Smoking Status Reviewed: 03/14/19 Patient has never smoked Exercise Type/Frequency Exercises sporadically Allergies, Adverse Reactions, Alerts Active Allergies Reaction Severity Comments Date Vicodin HIVES 05/15/2009 Darvocet HIVES 05/15/2009 Sudafed DIFFICULTY BREATHING 05/15/2009 Medications Active Medications SIG Qnty Indications Ordering Date Provider Mucus Relief 1 tab bid 14tabs J01.90 Gege Weir, 03/14/2019 400mg HIDE STRETCHER HAND Tablets Fluticasone use 2 sprays in 16units J01.90 Gege Weir, 03/14/2019 Propionate each nostril one HIDE STRETCHER HAND 50mcg/Act time a day Suspension Zithromax Z-Jethro take 2 tabs by 1tabs J20.9 Gege Destin, 03/14/2019 250mg mouth 1st day of HIDE STRETCHER HAND Tablets treatment then 1 tab by mouth for an additional 4 days. Qjxsr-8-Vwxe Ethyl 1 capsules 2 180caps E78.1 Jane [...] po tid; Rx'd by 60tabs M54.5 Marko 06/22/[address] Mikey Ugarte M.D. Tylenol/Codeine #4 tid prn 90tabs 719.41 Other Ordering 06/22/2010 Provider 300-60mg Tablets History Medications Decadron Twice Daily 10tabs Unknown 11/22/2018 - 4mg 01/08/2019 Tablets Valium take 1 -2 tabs by 2tabs Chase Manning 10/17/2018 - 5mg mouth as needed for [facility] 10/30/2018 Tablets anxiety and restlessness prior to mri scan Medications Administered in Office Medication SIG Qnty Indications Ordering Provider Date No Injection Chase uCevas MD 09/19/2018 Injection Depomedrol 40MG Chase Cuevas MD 09/19/2018 Injection Depomedrol 40MG Chase Cuevas MD 08/24/2018 Injection Depomedrol 40MG Chase Cuevas MD 02/24/2017 Injection PPD Nurse Visit [place] 11/11/2014 Injection Immunizations CPT Code Status Date Vaccine Lot # [id number] Given 03/14/2015 Afluria Vaccine Q2037 Given 09/26/2014 Fluvirin Im 3Yrs And Older Vital Signs Date Vital Result Comment 03/14/2019 10:38am Height 64 inches 5'4" Weight 253.00 lb Heart Rate 73 /min BP Systolic 127 mmHg BP Diastolic 95 mmHg Body Temperature 97.2 F O2 % BldC Oximetry 97 % BMI (Body Mass Index) 43.4 kg/m2 03/13/2019 10:54am Height 64 inches 5'4" Weight 251.25 lb Heart Rate 72 /min BP Systolic 128 mmHg BP Diastolic 74 mmHg Respiratory Rate 14 /min Pain Level 10 BMI (Body Mass Index) 43.1 kg/m2 Results Test Date Facility Test Result H/L Range Note Laboratory test 02/14/2019 [facility] Partial 36.2 seconds Normal 26.0-38.0 finding [address] [facility] [place] [address] PTT [phone] Inr/Protime 02/14/2019 [facility] Inr 0.90 Normal 0.82-1.09 1 [address] [place], [place] [id number] [phone] Urinalysis 02/14/2019 [facility] Urine Color Yellow Profile [address] [place] [address] [phone] Urine Appearance Cloudy Urine Specific [place] 1.024 Normal 1.010-1.030 Urine pH 5.0 Normal [...] Cell Present Abnormal Absent CBC Auto 02/14/2019 [facility] White Blood 6.9 10^3/uL Normal 3.5-10.[address] [place], [place] [id number] [phone] Red Blood Count 4.62 10^6/uL Normal 3.70-4.87 [...] Blood Cells % 0.1 Basic Metabolic 02/14/2019 [facility] Sodium 140 mmol/L Normal 135-[address] [place] [address] [phone] Chloride 106 mmol/L Normal 101-111 Co2 Carbon Dioxide 26 mmol/L Normal 22-32 Glucose 103 mg/dL High 70-100 Blood Urea Nitrogen 16 mg/dL Normal 6-24 Creatinine 0.75 mg/dL Normal 0.51-0.95 BUN/Creatinine Ratio 21.3 High 8-20 Calcium 9.7 mg/dL Normal 8.6-10.3 Egfr Non- 81.8 >60 Egfr 99.0 >60 2 Potassium 5.1 mmol/L High 3.5-5.0 Anion Gap 8 mmol/L Normal 2-11 Urine Culture And 02/14/2019 [facility] Urine Culture SEE RESULT [address] [place] [address] [phone] Lipid Profile 01/09/2019 [facility] Triglycerides 411 mg/dL 4 (Trig/Chol/HDL) [address] [place] [address] [phone] Cholesterol 288 mg/dL 5 HDL Cholesterol 41.4 mg/dL 6 LDL Cholesterol (SEE NOTE) mg/dL 7 Liver Function 01/09/2019 [facility] Total Protein 6.5 g/dL Normal 6.4-8.[address] [place] [address] [phone] Albumin 4.2 g/dL Normal 3.2-5.2 Globulin 2.3 g/dL Normal 2-4 Albumin/Globulin Ratio 1.8 Normal 1-3 Total Bilirubin 0.30 mg/dL Normal 0.2-1.0 Direct Bilirubin 0.00 mg/dL Low 0.03-0.18 Alkaline Phosphatase 75 U/L Normal 34-104 Alt 31 U/L Normal 7-52 Ast 21 U/L Normal 13-39 Laboratory test 01/09/2019 [facility] LDL Cholesterol 157 mg/dL [address] [place] [address] [phone] 1 Standard intensity warfarin therapeutic range: 2.0-3.0 [...] [address]: Jane Canales MD Acct: [id number] Unit: [id number] AGE: 48 Location: [facility] Re02/14/19 SEX: F Status: REG REF SPEC: [id number] RUDI: 02/14/[address]: Jane Canales MD REQ: [id number] RECD: 02/14/19 STATUS: COMP _ SOURCE: URINE SPDESC: ORDERED: Urine Culture Procedure Result Reported Site Urine Culture Final 02/15/19- 1313 ML No growth of clinically significant organisms * ML - Main Lab . END OF REPORT DEPARTMENT OF PATHOLOGY, [address] [place] [address] Humza Knapp M.D. Director [facility] # [id number] 4 Desirable: <150 Borderline High: 150-199 High: 200-499 Very High: >500 5 Desirable: <200 Borderline High: 200-239 High: >239 6 Low: <40 Desirable: 40-60 High: >60 7 Unable to calculate LDL as triglyceride is > 400 8 Desirable: <100 Near Optimal: 100-129 Borderline High: 130-159 High: 160-189 Very High: >189 Procedures Date Code Description Status 02/12/2019 21999 EKG Tracing & Interpretation Completed 09/19/2018 41409 Inject/Drain Joint/Bursa Intermediate W/O US Completed 11/04/2011 34430260 Colonoscopy Completed 07/29/2011 08676702 Mammogram Completed Medical Devices Description No Information Available Encounters Type Date Location Provider Dx Diagnosis Office Visit 02/12/2019 Rashmi Canales MD Z01.818 Encounter for other 11:00a Medicine - Ccmob preprocedural examination R03.0 Elevated blood-pressure reading, w/o diagnosis of htn E78.1 Pure hyperglyceridemia S46.011D Strain of musc/tend the rotator cuff of right shoulder, subs Office Visit 01/23/2019 9:45a Andra Manning S46.011D Strain of Orthopedics at [facility] musc/tend the [place] rotator cuff of right shoulder, subs S46.111D Strain of musc/fasc/tend long hd bicep, right arm, subs M75.51 Bursitis of right shoulder M54.12 Radiculopathy, cervical region Office Visit 01/16/2019 2:00p Andra Manning S46.011D Strain of Orthopedics at [facility] musc/tend the [place] rotator cuff of right shoulder, subs S46.111D Strain of musc/fasc/tend long hd bicep, right arm, subs Office Visit 01/09/2019 8:40a Rashmi Canales, E78.5 Hyperlipidemia, Medicine - MD unspecified Ccmob F41.9 Anxiety disorder, unspecified S46.011D Strain of musc/tend the rotator cuff of right shoulder, subs Office Visit 12/19/2018 2:45p Andra Manning S46.011D Strain of Orthopedics at [facility] Cuevas/tend the [place] rotator cuff of right shoulder, subs M54.12 Radiculopathy, cervical region M75.51 Bursitis of right shoulder M25.521 Pain in right elbow Office Visit 10/31/2018 8:45a Andra Manning S46.011D Strain of Orthopedics at [facility] musc/tend the [place] rotator cuff of right shoulder, subs M54.12 Radiculopathy, cervical region M75.51 Bursitis of right shoulder S46.011D Strain of musc/tend the rotator cuff of right shoulder, subs Office Visit 10/10/2018 3:15p Andra Manning S46.011D Strain of Orthopedics at [facility] musc/tend the [place] rotator cuff of right shoulder, subs M54.12 Radiculopathy, cervical region M75.51 Bursitis of right shoulder Office Visit 09/19/2018 8:15a Andra Manning S46.011D Strain of Orthopedics at [facility] musc/tend the [place] rotator cuff of right shoulder, subs M54.12 Radiculopathy, cervical region M75.51 Bursitis of right shoulder M25.521 Pain in right elbow Assessments Date Code Description Provider 03/14/2019 J01.90 Acute sinusitis, unspecified YONATHAN Ball [...] 03/13/2019 M75.51 Bursitis of right shoulder Chase Cueavs MD 03/13/2019 M54.12 Radiculopathy, cervical region Chase [...] Bursitis of right shoulder Chase Cuevas MD 09/19/2018 S46.011D Strain of muscle(s) and tendon(s) of the Chase Cuevas MD rotator cuff of rig 09/19/2018 M54.12 Radiculopathy, cervical region Chase Cuevas MD 09/19/2018 M75.51 Bursitis of right shoulder Chase Cuevas MD 09/19/2018 M25.521 Pain in right elbow Chase Cuevas MD Plan of Treatment Future Appointment(s):04/03/2019 10:15 am - Chase Cuevas MD at [facility] at Rkqajd1304/16/2019 11:40 am - Jane Canales MD at [facility] Internal Medicine - [facility]03/21/2019 11:45 am - ALESSIA Jordan at [facility] at Cegldd7203/21/2019 11:45 am - Chase Cuevas MD at [facility] at Rldkgq6403/14/2019 - Gege Weir, FNPJ01.90 Acute sinusitis, unspecifiedNew Medication:Mucus Relief 400 mg - 1 tab bidFluticasone Propionate 50 mcg/Act - use 2 sprays in each nostril one time a dayComments:You likely have a viral infection of your sinuses.We recommend to increase rest and fluid intake.Youmay take Tylenol to reduce the pain and discomfort. I sent a prescription for a steroid nose spray to reduce the swelling in your nose.I am also giving medication to treat the bronchitis see belowFollow up:as pldeewZ56.9 Acute bronchitis, unspecifiedNew Medication:Zithromax Z-Jethro 250 mg - take 2 tabs by mouth 1st day of treatment then 1 tab by mouth for an additional 4 days.Comments :For your bronchitis: Sent prescription for Z-pack. You are to take this until they are gone. Make sure to take this with a little food. Start taking the Mucinex and increase your fluid intake. If your symptoms do not improve or if you should start to feel worse call the office.S46.011D Strain of muscle(s) and tendon(s) of the rotator cuff of right shoulder, subsequent encounter Functional Status Description No Information Available Mental Status Description No Information Available Referrals Description No Information Available
--- OUTSIDE RECORDS SUMMARY | 2019-05-11 19:02 | XMS REPORT | Continuity of Care Document ---
:1970 External Reference #:[id number] Author Name Franklin Singleton MD (transmitted by agent of provider Mary Kate Rosales ) Address [address] [place] [address] Care Team Providers Name Role Phone Chaparro Preciado MD - Internal Care Team Information Assistant Wrestling Coach Medicine Jane Canales M.D. - Family Medicine Care Team Information Assistant Wrestling Coach [phone] Problems Active Problems Provider Date Depressive disorder Chaparro Precaido M.D.,FACP Onset: 10/23/2014 Hyperlipidemia Chaparro Preciado M.D.,FACP [...] Patient has never smoked Exercise Type/Frequency Exercises regularly walking Allergies, Adverse Reactions, Alerts Active Allergies Reaction Severity Comments Date Vicodin HIVES 05/15/2009 Darvocet HIVES 05/15/2009 Sudafed DIFFICULTY BREATHING 05/15/2009 Medications Active Medications SIG Qnty Indications Ordering Provider Date Alprazolam take one tablet 14tabs F41.9 Jane Canales MD 03/26/2019 0.25mg by mouth as Tablets needed for anxiety. Gnncm-5-Buro Ethyl 1 capsules 2 180caps E78.1 Jane [...] Ordering 06/22/2010 Provider 300-60mg Tablets History Medications Mucus Relief 1 tab bid 14tabs J01.90 Gege Weir, 03/14/2019 - 400mg ROUTE SPECIALIST Unknown Tablets Fluticasone use 2 sprays in 16units J01.90 Gege Weir, 03/14/2019 - Propionate each nostril one ROUTE SPECIALIST Unknown time a day 50mcg/Act Suspension Zithromax Z-Jethro take 2 tabs by 1tabs J20.9 Gege Weir, 03/14/2019 - mouth 1st day of ROUTE SPECIALIST 03/26/2019 250mg Tablets treatment then 1 tab by mouth for an additional 4 days. Decadron Twice Daily 10tabs Unknown 11/22/2018 - 4mg 01/08/2019 Tablets Valium take 1 -2 tabs by 2tabs Chase Manning 10/17/2018 - 5mg Tablets mouth as needed for [facility] 10/30/2018 anxiety and restlessness prior to mri scan Medications Administered in Office Medication SIG Qnty Indications Ordering Provider Date No Injection Chase Cuevas MD 09/19/2018 Injection Depomedrol 40MG Chase Cuevas MD 09/19/2018 Injection Depomedrol 40MG Chase Cuevas MD 08/24/2018 Injection Depomedrol 40MG Chase Cuevas MD 02/24/2017 Injection PPD Nurse Visit [place] 11/11/2014 Injection Immunizations CPT Code Status Date Vaccine Lot # [id number] Given 03/14/2015 Afluria Vaccine Q2037 Given 09/26/2014 Fluvirin Im 3Yrs And Older Vital Signs Date Vital Result Comment 03/26/2019 10:06am Height 64 inches 5'4" Weight 249.00 lb Heart Rate 78 /min BP Systolic Sitting 164 mmHg BP Diastolic Sitting 100 mmHg Respiratory Rate 16 /min Body Temperature 99.3 F Pain Level 10 BMI (Body Mass Index) 42.7 kg/m2 03/26/2019 8:50am Height 64 inches 5'4" Weight [...] % BMI (Body Mass Index) 42.7 kg/m2 Results Test Date Facility Test Result H/L Range Note Laboratory test 02/14/2019 [facility] Partial 36.2 seconds Normal 26.0-38.[address] [place] [address] PTT [phone] Inr/Protime 02/14/2019 [facility] Inr 0.90 Normal 0.82-1.[address] [place] [address] [phone] Urinalysis 02/14/2019 [facility] Urine Color Yellow Profile [address] [place], [place] [address] [phone] Urine Appearance Cloudy Urine Specific [place] 1.024 Normal 1.010-1.030 Urine pH 5.0 Normal [...] Cell Present Abnormal Absent CBC Auto 02/14/2019 [facility] White Blood 6.9 10^3/uL Normal 3.5-10.[address] [place] [address] [phone] Red Blood Count 4.62 10^6/uL Normal 3.70-4.87 [...] Blood Cells % 0.1 Basic Metabolic 02/14/2019 [facility] Sodium 140 mmol/L Normal 135-[address] [place] [address] [phone] Chloride 106 mmol/L Normal 101-111 Co2 Carbon Dioxide 26 mmol/L Normal 22-32 Glucose 103 mg/dL High 70-100 Blood Urea Nitrogen 16 mg/dL Normal 6-24 Creatinine 0.75 mg/dL Normal 0.51-0.95 BUN/Creatinine Ratio 21.3 High 8-20 Calcium 9.7 mg/dL Normal 8.6-10.3 Egfr Non- 81.8 >60 Egfr 99.0 >60 2 Potassium 5.1 mmol/L High 3.5-5.0 Anion Gap 8 mmol/L Normal 2-11 Urine Culture And 02/14/2019 [facility] Urine Culture SEE RESULT [address] [place] [address] [phone] Lipid Profile 01/09/2019 [facility] Triglycerides 411 mg/dL 4 (Trig/Chol/HDL) [address] [place] [address] [phone] Cholesterol 288 mg/dL 5 HDL Cholesterol 41.4 mg/dL 6 LDL Cholesterol (SEE NOTE) mg/dL 7 Liver Function 01/09/2019 [facility] Total Protein 6.5 g/dL Normal 6.4-8.[address] [place] [address] [phone] Albumin 4.2 g/dL Normal 3.2-5.2 Globulin 2.3 g/dL Normal 2-4 Albumin/Globulin Ratio 1.8 Normal 1-3 Total Bilirubin 0.30 mg/dL Normal 0.2-1.0 Direct Bilirubin 0.00 mg/dL Low 0.03-0.18 Alkaline Phosphatase 75 U/L Normal 34-104 Alt 31 U/L Normal 7-52 Ast 21 U/L Normal 13-39 Laboratory test 01/09/2019 [facility] LDL Cholesterol 157 mg/dL [address] [place] [address] [phone] 1 Standard intensity warfarin therapeutic range: 2.0-3.0 [...] [address]: Jane Canales MD Acct: [id number] Unit: [id number] AGE: 48 Location: [facility] Re02/14/19 SEX: F Status: REG REF SPEC: [id number] RUDI: 02/14/[address]: Jane Canales MD REQ: [id number] RECD: 02/14/19 STATUS: COMP _ SOURCE: URINE SPDESC: ORDERED: Urine Culture Procedure Result Reported Site Urine Culture Final 02/15/19- 1313 ML No growth of clinically significant organisms * ML - Main Lab . END OF REPORT DEPARTMENT OF PATHOLOGY, [address] [place] [address] Humza Knapp M.D. Director [facility] # [id number] 4 Desirable: <150 Borderline High: 150-199 High: 200-499 Very High: >500 5 Desirable: <200 Borderline High: 200-239 High: >239 6 Low: <40 Desirable: 40-60 High: >60 7 Unable to calculate LDL as triglyceride is > 400 8 Desirable: <100 Near Optimal: 100-129 Borderline High: 130-159 High: 160-189 Very High: >189 Procedures Date Code Description Status 02/12/2019 43480 EKG Tracing & Interpretation Completed 11/04/2011 87188479 Colonoscopy Completed 07/29/2011 [id number] Mammogram Completed Medical Devices Description No Information Available Encounters Type Date Location Provider Dx Diagnosis Office Visit 03/14/2019 [facility] Internal Gege Weir, J01.90 Acute sinusitis , 10:40a Medicine - Ccmob ROUTE SPECIALIST unspecified J20.9 Acute bronchitis, unspecified S46.011D Strain of musc/tend the rotator cuff of right shoulder, subs Office Visit 02/12/2019 11:00a [employer] Internal Jane Canales Z01.818 Encounter for other Medicine - MD preprocedural Ccmob examination R03.0 Elevated blood-pressure reading, w/o diagnosis of htn E78.1 Pure hyperglyceridemia S46.011D Strain of musc/tend the rotator cuff of right shoulder, subs Office Visit 01/23/2019 9:45a Andra Manning S46.011D Strain of Orthopedics at [facility] musc/tend the [place] rotator cuff of right shoulder, subs S46.111D Strain of musc/fasc/tend long hd bicep, right arm, subs M75.51 Bursitis of right shoulder M54.12 Radiculopathy, cervical region Office Visit 01/16/2019 2:00p Andra Manning S46.011D Strain of Orthopedics at [facility] musc/tend the [place] rotator cuff of right shoulder, subs S46.111D Strain of musc/fasc/tend long hd bicep, right arm, subs Office Visit 01/09/2019 8:40a [employer] Internal Jane Canales, E78.5 Hyperlipidemia, Medicine - MD unspecified Ccmob F41.9 Anxiety disorder, unspecified S46.011D Strain of musc/tend the rotator cuff of right shoulder, subs Office Visit 12/19/2018 2:45p Andra Manning S46.011D Strain of Orthopedics at [facility] musc/tend the [place] rotator cuff of right shoulder, subs M54.12 Radiculopathy, cervical region M75.51 Bursitis of right shoulder M25.521 Pain in right elbow Office Visit 10/31/2018 8:45a Andra Manning S46.011D Strain of Orthopedics at [facility] musc/tend the [place] rotator cuff of right shoulder, subs M54.12 Radiculopathy, cervical region M75.51 Bursitis of right shoulder S46.011D Strain of musc/tend the rotator cuff of right shoulder, subs Office Visit 10/10/2018 3:15p Andra Manning S46.011D Strain of Orthopedics at [facility] musc/tend the [place] rotator cuff of right shoulder, subs M54.12 Radiculopathy, cervical region M75.51 Bursitis of right shoulder Assessments Date Code Description Provider 03/26/2019 M47.22 Other spondylosis with radiculopathy, Vasines Singleton MD cervical region 03/26/2019 I10 Essential (primary) hypertension Jane Canales [...] Chase Cuevas MD Plan of Treatment Future Appointment(s):06/27/2019 9:30 am - Franklin Singleton MD at [facility]04/04/2019 9:40 am - Jane Canales MD at [facility] Internal Medicine - [facility]03/30/2019 9:20 am - Nurse Visit A at [facility] Internal Medicine - [facility]04/03/2019 10:15 am - Chase Cuevas MD at [facility] at Tnvfrh2604/16/2019 11:40 am - Jane Canales MD at [facility] Internal Medicine - [facility]03/26/2019 - Franklin Singleton, MDM47.22 Other spondylosis with radiculopathy, cervical regionNew Orders:EMG w/Nerve Conduct Study, Upper, Ordered: 03/26/19Follow up:RV in 3 months Functional Status Description No Information Available Mental Status Description No Information Available Referrals Description No Information Available
--- OUTSIDE RECORDS SUMMARY | 2019-05-11 19:02 | XMS REPORT | Continuity of Care Document ---
:1970 External Reference #:[id number] Author Name Jorge Birch MD (transmitted by agent of provider Tere Martinez) Address [address] [place] [address] Care Team Providers Name Role Phone Chaparro Preciado MD - Internal Care Team Information Adjuster Piano Action [phone] Medicine Jane Canales M.D. - Family Medicine Care Team Information Adjuster Piano Action [phone] Problems Active Problems Provider Date Depressive disorder Chaparro Preciado M.D.,FACP Onset: 10/23/2014 Hyperlipidemia Chaparro Preciado M.D.,FACP Onset: 10/23/2014 Impaired fasting glycaemia Chaparro Preciado M.D.,FACP Onset: 10/31/2014 Morbid obesity Chaparro Preciado M.D.,FACP Onset: 10/23/2014 Body mass index 40+ - severely obese Chaparro Preciado M.D.,FACP Onset: Strain of muscle(s) and tendon(s) of hCase Cuevas MD Onset: 10/10/2018 the rotator cuff of right shoulder, subsequent encounter Radiculopathy, cervical region Chase Cuevas MD Onset: 10/10/2018 Social History Type Date Description Comments Sex Unknown Tobacco Use Start: Unknown Never Smoked Cigarettes ETOH Use 06/21/2018 Denies alcohol use Recreational Drug Use Denies Drug Use Tobacco Use Start: Unknown Patient has never smoked Smoking Status Reviewed: 04/04/19 Patient has never smoked Exercise Type/Frequency Exercises regularly walking Allergies, Adverse Reactions, Alerts Active Allergies Reaction Severity Comments Date Vicodin HIVES 05/15/2009 Darvocet HIVES 05/15/2009 Sudafed DIFFICULTY BREATHING 05/15/2009 Medications Active Medications SIG Qnty Indications Ordering Provider Date Lisinopril 1 by mouth daily 30tabs I10 Jorge Birch MD 04/04/2019 2.5mg Tablets Amlodipine Besylate 2 by mouth every 60tabs R03.0 Jorge Birch MD 04/04/2019 day 5mg Tablets Alprazolam take one tablet 14tabs F41.9 Jane Canales MD 03/26/2019 0.25mg by mouth as Tablets needed for anxiety. Oxssl-1-Qkor Ethyl 1 capsules 2 180caps E78.1 Jane Canales MD 02/12/2019 Esters x/day, with food 1gm Capsules Trazodone HCL 1/2-1 tablet at 30tabs Jane [...] 14tabs J01.90 Gege Weir, 03/14/2019 - 400mg FLOOR COVERING INSTALLER Unknown Tablets Fluticasone use 2 sprays in 16units J01.90 Gege Weir, 03/14/2019 - Propionate each nostril one [employer] C[employer]ING INSTALLER Unknown time a day 50mcg/Act Suspension Zithromax Z-Jethro take 2 tabs by 1tabs J20.9 Gege Weir, 03/14/2019 - mouth 1st day of [employer]OR COVERING INSTALLER 03/26/2019 250mg Tablets treatment then 1 tab by mouth for an additional 4 days. Amlodipine Besylate 1 by mouth every 30tabs R03.0 Jane Canales MD 2018 - day 04/04/2019 5mg Tablets Decadron Twice Daily 10tabs Unknown 11/22/2018 - [...] Older Vital Signs Date Vital Result Comment 04/04/2019 11:51am Height 64 inches 5'4" Weight 251.00 lb Heart Rate 65 /min BP Systolic 130 mmHg 131/94 BP Diastolic 98 mmHg 131/94 Body Temperature 97.8 F O2 % BldC Oximetry 98 % BMI (Body Mass Index) 43.1 kg/m2 03/30/2019 9:46am Height 64 inches 5'4" Weight 249.00 lb Heart Rate 72 /min BP Systolic 130 mmHg left arm BP Diastolic 93 mmHg left arm BP Systolic Sitting 128 mmHg right arm BP Diastolic Sitting 92 mmHg right arm Body Temperature 97.8 F O2 % BldC Oximetry 99 % BMI (Body Mass Index) 42.7 kg/m2 Results Test Acquired Date Facility Test Result H/L Range Note Laboratory test 02/14/2019 [facility] Partial 36.2 Normal 26.0 -38.[address] [address] PTT [phone] Inr/Protime 02/14/2019 [facility] Inr 0.90 Normal 0.82-1.[address] [place] [address] [phone] Urinalysis 02/14/2019 [facility] Urine Color Yellow Profile [address] [place] [address] [phone] Urine Appearance Cloudy Urine Specific [place] 1.024 Normal 1.010-1.030 Urine pH 5.0 Normal [...] Cell Present Abnormal Absent CBC Auto 02/14/2019 [facility] White Blood 6.9 10^3/uL Normal 3.5-10.[address] [place] [address] [phone] Red Blood Count 4.62 10^6/uL Normal 3.70-4.87 [...] Blood Cells % 0.1 Basic Metabolic 02/14/2019 [facility] Sodium 140 mmol/L Normal 135-[address] [place] [address] [phone] Chloride 106 mmol/L Normal 101-111 Co2 Carbon Dioxide 26 mmol/L Normal 22-32 Glucose 103 mg/dL High 70-100 Blood Urea Nitrogen 16 mg/dL Normal 6-24 Creatinine 0.75 mg/dL Normal 0.51-0.95 BUN/Creatinine Ratio 21.3 High 8-20 Calcium 9.7 mg/dL Normal 8.6-10.3 Egfr Non- 81.8 >60 Egfr 99.0 >60 2 Potassium 5.1 mmol/L High 3.5-5.0 Anion Gap 8 mmol/L Normal 2-11 Urine Culture And 02/14/2019 [facility] Urine Culture SEE RESULT [address] [place] [address] [phone] Lipid Profile 01/09/2019 [facility] Triglycerides 411 mg/dL 4 (Trig/Chol/HDL) [address] [place] [address] [phone] Cholesterol 288 mg/dL 5 HDL Cholesterol 41.4 mg/dL 6 LDL Cholesterol (SEE NOTE) mg/dL 7 Liver Function 01/09/2019 [facility] Total Protein 6.5 g/dL Normal 6.4-8.[address] [place] [address] [phone] Albumin 4.2 g/dL Normal 3.2-5.2 Globulin 2.3 g/dL Normal 2-4 Albumin/Globulin Ratio 1.8 Normal 1-3 Total Bilirubin 0.30 mg/dL Normal 0.2-1.0 Direct Bilirubin 0.00 mg/dL Low 0.03-0.18 Alkaline Phosphatase 75 U/L Normal 34-104 Alt 31 U/L Normal 7-52 Ast 21 U/L Normal 13-39 Laboratory test 01/09/2019 [facility] LDL Cholesterol 157 mg/dL [address] [place] [address] [phone] 1 Standard intensity warfarin therapeutic range: 2.0-3.0 [...] [address]: Jane Canales MD Acct: [id number] Unit: [id number] AGE: 48 Location: [facility] Re02/14/19 SEX: F Status: REG REF SPEC: [id number] RUDI: 02/14/[address]: Jane Canales MD REQ: [id number] RECD: 02/14/19 STATUS: COMP _ SOURCE: URINE SPDESC: ORDERED: Urine Culture Procedure Result Reported Site Urine Culture Final 02/15/19- 1313 ML No growth of clinically significant organisms * ML - Main Lab . END OF REPORT DEPARTMENT OF PATHOLOGY, [address] [place] [address] Humza Knapp M.D. Director [facility] # [id number] Desirable: <150 Borderline High: 150-199 High: 200-499 Very High: >500 5 Desirable: <200 Borderline High: 200-239 High: >239 6 Low: <40 Desirable: 40-60 High: >60 7 Unable to calculate LDL as triglyceride is > 400 8 Desirable: <100 Near Optimal: 100-129 Borderline High: 130-159 High: 160-189 Very High: >189 Procedures Date Code Description Status 02/12/2019 73261 EKG Tracing & Interpretation Completed 11/04/2011 91157603 Colonoscopy Completed 07/29/2011 [id number] Mammogram Completed Medical Devices Description No Information Available Encounters Type Date Location Provider Dx Diagnosis Office Visit 03/26/2019 [facility] Internal Jane Canales MD I10 Essential ( primary) 8:40a Medicine - [facility] hypertension F41.9 Anxiety disorder, unspecified J06.9 Acute upper respiratory infection, unspecified Office Visit 03/14/2019 10:40a [facility] Internal Gege Weir, J01.90 Acute sinusitis, Medicine - FLOOR COVERING INSTALLER unspecified [facility] J20.9 Acute bronchitis, unspecified S46.011D Strain of musc/tend the rotator cuff of right shoulder, subs Office Visit 02/12/2019 11:00a [facility] Internal Jane Canales, Z01.818 Encounter for other Medicine - preprocedural [facility] examination R03.0 Elevated blood-pressure reading, w/o diagnosis of htn E78.1 Pure hyperglyceridemia S46.011D Strain of musc/tend the rotator cuff of right shoulder, subs Office Visit 01/23/2019 9:45a Andra Manning S46.011D Strain of Orthopedics at [facility]end [facility] [place] rotator cuff of right shoulder, subs S46.111D Strain of musc/fasc/tend long hd bicep, right arm, subs M75.51 Bursitis of right shoulder M54.12 Radiculopathy, cervical region Office Visit 01/16/2019 2:00p Andra Manning S46.011D Strain of Orthopedics at [facility] [place] rotator cuff of right shoulder, subs S46.111D Strain of musc/fasc/tend long hd bicep, right arm, subs Office Visit 01/09/2019 8:40a [facility] Jane Canales, E78.5 Hyperlipidemia, Medicine - MD unspecified [facility] F41.9 Anxiety disorder, unspecified S46.011D Strain of musc/tend the rotator cuff of right shoulder, subs Office Visit 12/19/2018 2:45p Andra Manning S46.011D Strain of Orthopedics at [facility] [place] rotator cuff of right shoulder, subs M54.12 Radiculopathy, cervical region M75.51 Bursitis of right shoulder M25.521 Pain in right elbow Office Visit 10/31/2018 8:45a Andra Manning S46.011D Strain of Orthopedics at [facility]end [facility] [place] rotator cuff of right shoulder, subs M54.12 Radiculopathy, cervical region M75.51 Bursitis of right shoulder S46.011D Strain of musc/tend the rotator cuff of right shoulder, subs Office Visit 10/10/2018 3:15p Andra Manning S46.011D Strain of Orthopedics at [facility] [place] rotator cuff of right shoulder, subs M54.12 Radiculopathy, cervical region M75.51 Bursitis of right shoulder Assessments Date Code Description Provider 04/04/2019 I10 Essential (primary) hypertension Jorge Birch MD 03/30/2019 I10 Essential (primary) hypertension Nurse Visit A 03/26/2019 M47.22 Other spondylosis with radiculopathy, Franklin Singleton MD cervical region 03/26/2019 I10 Essential (primary) hypertension Jane Canales MD 03/26/2019 F41.9 Anxiety disorder, unspecified Jane Canales MD 03/26/2019 J06.9 Acute upper respiratory infection, Jane Canales MD unspecified 03/14/2019 J01.90 Acute sinusitis, unspecified Gege Weir, FLOOR COVERING INSTALLER 03/14/2019 J20.9 Acute bronchitis, unspecified Candaceernesto Destin, FLOOR COVERING INSTALLER 03/14/2019 S46.011D Strain of muscle(s) and tendon(s) [...] Chase Cuevas MD Plan of Treatment Future Appointment(s):04/09/2019 10:00 am - Nurse Visit [facility] at [facility] Medicine - Suite 06/27/2019 9:30 am - Franklin Singleton MD [facility]04/16/2019 11:40 am - Jane Canales MD at [facility] Medicine - [facility]04/04/2019 - Jorge Birch MDI10 Essential (primary) hypertensionNew Medication:Lisinopril 2.5 mg - 1 by mouth dailyComments:Return for nurse visit for BP check early next week. Starting lisinopril 2.5mg. Continue amlodipine 10mg daily Functional Status Description No Information Available Mental Status Description No Information Available Referrals Description No Information Available
== END 2019-05-11 18:00 | disposition left against medical advice (07) ==
LOC: ED 17:07
DX: M25.511 Pain in right shoulder (principal); Z53.21 Procedure and treatment not carried out due to patient leaving prior to being seen by health care provider

== ENCOUNTER → 2019-05-18 09:48 | Day surgery (SDC) | payer OTHER ==
[~2019-05-18 09:48] MED LIST changes: -Bupivacaine 0.25% W/EPI* 10 ML SDV ONE; +Bupivacaine 0.5% W/EPI SDV* 30 ML VIAL ONE; +Dexamethasone IV* 4 MG/ML 1 ML (4 MG) IV SLOW PU ONE; +DiMENhydriNATE IV* 50 MG/ML VIAL IV PUSH PRN; +DiMENhydriNATE IV* 50 MG/ML VIAL ONE; +Famotidine IV* 10 MG/ML 2 ML (20 mg) IV ONE; +Ketorolac INJ* 30 MG/ML 1 ML VIAL IV PRN; +Ketorolac INJ* 30 MG/ML 1 ML VIAL ONE; -Labetalol IV* 5 MG/ML 20 ML VIAL ONE; +Lactated Ringers 1000 ML Bag* 1,000 ML IV SCH; -Midazolam* 1 MG/ML 2 ML VIAL (2 MG) ONE; +Midazolam* 1 MG/ML 5 ML VIAL (5 MG) ONE; +Naloxone* 0.4 MG/ML 1 ML VIAL IV PRN; +Ondansetron INJ* 2 MG/ML VIAL ONE; +ROPIVACAINE 5 MG/ML 30 ML BTL (0.5%) ONE; -ceFAZolin 2 GM PREMIX in ORs 0 GM/0 ML BAG ONE
[2019-05-18] MEDS: fentaNYL* 50 MCG/ML 2 ML VIAL (100 MCG VIAL) IV PRN ×2 (16:16→16:27)
[2019-05-18 17:25] VITALS: BP 136/92
--- NOTE | 2019-05-19 20:56 | OP ---
OPERATIVE REPORT: DATE OF OPERATION: 05/18/19 DATE OF : [birth year] SURGEON: Chase Cuevas MD SPRING FITTER HELPER: ALESSIA Jordan A physician cancer genetics assistant was required for the length of the procedure for assistance with the patient po sitioning, retraction, instrumentation and closure. ANESTHESIOLOGIST: Dr. Kate Qureshi. ANESTHESIA: General anesthesia, regional interscalene block anesthesia. PRE-OP DIAGNOSES: 1. Right shoulder rotator cuff tendinitis, possible tear. 2. Right shoulder subacromial impingement and bursitis. 3. Right shoulder acromioclavicular joint osteoarthritis. 4. Right shoulder possible biceps tendinosis, possible superior labrum retear. 5. A remote history of 4 prior right shoulder surgeries by other surgeons with likely prior superior labral repairs and rotator cuff repairs. POST-OP DIAGNOSES: 1. Right shoulder rotator cuff tendinitis with partial thickness undersurface tearing, supraspinatus . 2. Right shoulder subacromial impingement and bursitis. 3. Right shoulder acromioclavicular joint osteoarthritis. 4. Right shoulder long head biceps tendinosis. 5. Right shoulder superior labrum prominent suture and scar tissue. 6. Multiple prior right shoulder surgeries in the remote past by other surgeons including superior l abrum repairs and rotator cuff repairs. OPERATIVE PROCEDURES: 1. Right shoulder arthroscopic rotator cuff tendon repair with a Regeneten biologic patch, supraspin atus. 2. Right shoulder arthroscopic subacromial decompression. 3. Right shoulder arthroscopic distal clavicle resection. 4. Right shoulder arthroscopic limited debridement including debridement of prominent suture materia l about the superior labrum, debridement of superior labrum, debridement of scar tissue about the ant erosuperior aspect of the glenoid possibly consistent with a prior Liliane complex repair, release of biceps tendon long head. ANTIBIOTICS: Ancef 2 g IV. IV FLUIDS: See Anesthesia note. FZHN-US-WTGM TIME: 51 minutes. SPECIMEN: None. IMPLANTS: [employer] Regeneten biologic patch, size medium. COMPLICATIONS: None. ESTIMATED BLOOD LOSS: Minimal. 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 As mentioned above, she had had a distan t history of 4 prior surgeries by outside surgeons. Preoperative imaging made clear that the patient had had 3 prior anchors placed in the glenoid consistent with prior superior and perhaps anterosuper ior labrum repairs. There were some bone cysts present at the subscapularis tendon insertion, possib ly consistent reabsorption of bone at the location of prior biocomposite anchor placement. The patie nt continued to suffer from significant pain day and night and opted for surgery. Discussed risks and potential complications of surgery. Discussed treatment of biceps tendon that wo uld be with biceps release rather than tenodesis. DESCRIPTION OF PROCEDURE: In preoperative holding, the patient signed a written consent. Operative extremity was marked in the preoperative holding. The patient had a regional interscalene block perf ormed by Anesthesia in preoperative holding. The patient was taken back to the operating room and placed supine on the operating room table, sedat ed and intubated. The patient was placed in the lateral decubitus position with the right shoulder u p. Axillary roll. Bony prominences padded. Longitudinal traction. Right shoulder prepped and drape d. Surgical time-out formally performed. I used a spinal needle to infuse 30 cc of normal saline into the glenohumeral joint from posterior. Established posterior glenohumeral joint portal, started diagnostic arthroscopy. No loose body or si gnificant articular cartilage injury. There were some grade 2 changes about the superior aspect of hu meral head, but otherwise humeral head was then affected more than grade 1. There are also some grad e 1 and 2 changes about the glenoid. Suture material immediately visible anterior and posterior to a very thickened biceps anchor. I established anterior glenohumeral joint portal under direct visualization. I probed the biceps pardeep t was severely thickened with the sutures. I introduced arthroscopic shaver and removed the suture m aterial. Introduced scissors and released the biceps near its origin. Examined a lot of scar tissue anterosuperior to the glenoid and thought that this might have been an area of pain generation along with the biceps snapping back and forth. I debrided that tissue anterosuperiorly that could feasibl y have represented some element of a repaired Seco complex. The patient had some undersurface fraying of the supraspinatus, very low grade. Removed instruments and fluid from glenohumeral joint and moved to subacromial space. I established and anterior and posterior subacromial portal followed by lateral and posterolateral po rtals. No bursal-sided tearing of the rotator cuff. Because of the undersurface minimal tearing and the patient's long history of pain in the shoulder with prior surgical procedures, I thought it reas onable to treat with a biologic patch. I placed a medium Regeneten biologic patch through lateral po rtal and firmly fixed it with PLLA kang. Just prior to performing the biologic patch, I performed a subacromial decompression with an arthrosc opic silvia flattening out the undersurface of the acromion. After performing the biologic patch, I moved to the AC joint. I debrided synovitic tissue with a cau sosa device and then removed 8 mm of the distal end of the clavicle with an arthroscopic silvia. I removed the instruments and fluids from subacromial space and closed skin incisions with figure-of- eight 12 stitches using nylon 3-0 suture. Xeroform, 4x4s, ABDs, foam tape. Sling with abduction pil low. Awakened and extubated. DISPOSITION: The patient was discharged home with wound care instructions. She will receive Tylenol with Codeine No. 4 for pain control and she will receive pain medication from Dr. Jensen who she s ees for chronic pain. She will be in an UltraSling for 2 or 3 weeks. She will start physical therap y immediately according to the [facility] protocol. I told the patient and her mother that it was not clear which of the patient's pain generators was most symptomatic, although I suspect that it could conceivably have been the painful biceps and superior labrum. [id number]/[facility] #: [id number]
== END | disposition home or self-care (01) ==
LOC: OR 09:48
PROVIDERS: ATTEND Orthopaedic Surgery
DX: S46.011D Strain of muscle(s) and tendon(s) of the rotator cuff of right shoulder, subsequent encounter (principal); S46.111D Strain of muscle, fascia and tendon of long head of biceps, right arm, subsequent encounter; M75.51 Bursitis of right shoulder; M54.12 Radiculopathy, cervical region; G89.18 Other acute postprocedural pain; R73.01 Impaired fasting glucose; E66.01 Morbid (severe) obesity due to excess calories; Z68.41 Body mass index [BMI] 40.0-44.9, adult; E78.5 Hyperlipidemia, unspecified; I10 Essential (primary) hypertension; X58.XXXD Exposure to other specified factors, subsequent encounter; Y92.9 Unspecified place or not applicable
CPT/HCPCS: 81025; C1713; J0330; J1100; J1240; J1885; J2250; J2405; J2704; J2795; J3010

== ENCOUNTER 2021-06-10 09:55 | Observation (INO) ==
[2021-06-10 10:22] LABS: ABS Basophils 0.1 10^3/ul (0-0.2); ABS Eosinophils 0.2 10^3/ul (0-0.6); ABS Lymphocytes 3.1 10^3/ul (1.0-4.8); ABS Monocytes 0.7 10^3/ul (0-0.8); ABS Neutrophils 6.6 10^3/ul (1.5-7.7); Eosinophil % 1.7 %; Hematocrit 41 % (35-47); Hemoglobin 13.7 g/dL (12.0-16.0); Lymphocyte % 29.2 %; Mean Corpuscular HGB Conc 34 g/dL (31-36); Mean Corpuscular Hemoglobin 28 pg (27-31); Mean Corpuscular Volume 83 fL (80-97); Mean Platelet Volume 9.1 fL (7.4-10.4); Platelet Count 371 10^3/uL (150-450); Red Blood Count 4.94 10^6 /uL (3.70-4.87); Red Cell Distribution Width 14 % (10-15); White Blood Count 10.6 10^3/uL (3.5-10.8)
[2021-06-10 10:30] LABS: INR 1.05 (0.86-1.15)
[2021-06-10 10:41] LABS: Albumin 4.2 g/dL (3.2-5.2); Albumin/Globulin Ratio 1.6 (1-3); Calcium 9.3 mg/dL (8.6-10.3); Globulin 2.7 g/dL (2-4); Potassium 3.9 mmol/L (3.5-5.0); Total Bilirubin 0.4 mg/dL (0.2-1.0); Total Protein 6.9 g/dL (6.4-8.9); eGFR CKD-EPI 101.6 (>60)
[2021-06-10 12:39] LABS: HDL Cholesterol 49.4 mg/dL
[2021-06-10] MEDS ORDERED: Enoxaparin 40 MG/0.4 ML SYR SUBCUT SCH (13:00)
[2021-06-10 17:28] VITALS: BP 186/93
== END 2021-06-10 17:24 | disposition home or self-care (01) ==
LOC: ED 09:55 → EDHOLD 09:55
PROVIDERS: ADMIT Hospitalist; ATTEND Hospitalist